=== PATIENT | female | born 1975 | race African-American/Black ===

== ENCOUNTER 2022-03-12 17:35 | Emergency (ER) | payer OTHER, SELFPAY ==
[2022-03-12 17:48] VITALS: BP 147/93; PULSE 74; RESP 16; TEMP 37.2; O2SAT 99
--- NOTE | 2022-03-12 18:08 | ED.URI ---
HPI - URI/Sore Throat General Chief Complaint: Upper Respiratory Infection Stated Complaint: uri Time Seen by Provider: 03/12/22 18:09 Source: patient, family, RN notes reviewed and old records reviewed Mode of arrival: ambulatory Limitations: no limitations History of Present Illness HPI Narrative: 46-year-old female presents to the [facility] with complaints of left ear itching and right buttock pain for at least 2 to 3 months. Has an appointment with her primary care provider on March 20, was not able to get in however needs a work note for today. Denies any fevers. No treatment prior to arrival no numbness or tingling in extremities. Walks with a normal gait. No saddle anesthesia. No loss or retention of bladder or bowel. Related Data Allergies Allergy/AdvReac Type Severity Reaction Status Date / Time ibuprofen Allergy Mild Unknown Verified 03/12/22 18:03 Review of Systems Review of Systems: All systems reviewed & are unremarkable except as noted in HPI and below Constitutional: Constitutional: Reports no additional constitutional complaints, Denies chills, Denies fever(s) and Denies headache(s) Eyes: Eyes: Reports no additional eye complaints ENT: Reports as per HPI (Left ear pain), Denies vertigo, Denies dizziness, Denies headache(s), Denies nasal congestion and Denies sore throat Cardiovascular: Cardiovascular: Reports no additional cardiovascular complaints, Denies chest pain, Denies syncope, Denies rapid heart rate and Denies dyspnea Respiratory: Respiratory: Reports no additional respiratory complaints, Denies cough, Denies dyspnea and Denies wheezing Gastrointestinal: Gastrointestinal: Reports no additional gastrointestinal complaints, Denies abdominal pain, Denies diarrhea, Denies nausea and Denies vomiting Musculoskeletal: Musculoskeletal: Reports as per HPI, Reports back pain (Right buttock over 3 months) and Denies numbness Integumentary/Breasts: Skin/Breast: Reports system reviewed and no additional complaints, except as docu Neurologic: Reports system reviewed and no additional complaints, except as documented, Denies vertigo, Denies dizziness, Denies syncope, Denies headache(s), Denies focal weakness and Denies numbness Psychiatric: Psychiatric: Reports no additional psychiatric complaints Allergic/Immunologic: Allergic/Immunologic: Reports no additional allergic/immunologic complaints and Denies wheezing PMFSH Comments At the time of my signature, I reviewed and agree with the nursing past medical, surgical, social, and family history. There is no relevant family history pertinent to the patient complaint. Exam Const: General: cooperative, healthy appearing, no acute distress, well developed and alert Nutritional Appearance: well nourished Orientation/consciousness: patient oriented x3 Limitations: no limitations HENMT: Head: normal to inspection Ears: external ears normal, TM's normal bilaterally and Abnormal EAC present erythema on the left and edema on the left; no cerumen impaction and no excessive cerumen Throat: posterior oropharynx normal and uvula midline Eyes: Conjunctivae: conjunctivae normal Pupils: Equal, round and reactive pupils present Neck: Neck: normal visual inspection, no lymphadenopathy and no meningeal signs Chest: Chest palpation & inspection: normal inspection of the chest Resp: Effort & Inspection: normal respiratory effort and no use of accessory muscles Auscultation: clear to auscultation bilaterally, no crackles, no rales, no rhonchi and no wheezes Cardio: Rate: regular rate Rhythm: regular rhythm Skin: General skin exam: normal color Rashes: no rashes Wounds: no wounds Neuro: General: patient oriented x3, moves all extremities, no meningeal signs and no focal motor deficits Cranial nerves: Yes Equal, round and reactive pupils present Speech: normal speech Gait exam (Neuro): Normal gait present Extrem: General: normal to inspection, full ROM and capillary refill
== END 2022-03-12 18:20 | disposition home or self-care (01) ==
PROVIDERS: Emergency Provider Nurse Practitioner; PCP Family Medicine
DX: S00.412A Abrasion of left ear, initial encounter (principal); X58.XXXA Exposure to other specified factors, initial encounter; M54.50 Low back pain, unspecified
CPT/HCPCS: 99213; G0463

== ENCOUNTER 2022-04-23 15:12 | Emergency (ER) | payer OTHER, SELFPAY ==
[2022-04-23 15:24] VITALS: BP 124/96; PULSE 82; RESP 16; TEMP 37; O2SAT 99
--- NOTE | 2022-04-23 15:46 | ED.URI ---
HPI - URI/Sore Throat General Chief Complaint: Upper Respiratory Infection Stated Complaint: thorpe/congestion Time Seen by Provider: 04/23/22 15:46 Source: patient and RN notes reviewed Mode of arrival: ambulatory Limitations: no limitations History of Present Illness HPI Narrative: 46-year-old female presents to the [facility] with complaints of clear nasal drainage, congestion and a head presssure on the left side. Patient reports symptoms started this morning. Denies any other symptoms. Denies fevers, chest pain, abdominal pain. No nausea vomiting or diarrhea. No treatment prior to arrival Related Data Home Medications Medication Instructions Recorded Confirmed No Home Medications 04/23/22 04/23/22 Allergies Allergy/AdvReac Type Severity Reaction Status Date / Time ibuprofen Allergy Mild Unknown Verified 03/12/22 18:03 Review of Systems Review of Systems: All systems reviewed & are unremarkable except as noted in HPI and below Constitutional: Constitutional: Reports no additional constitutional complaints, Denies chills and Denies fever(s) Eyes: Eyes: Reports no additional eye complaints ENT: Reports as per HPI and Reports nasal congestion Cardiovascular: Cardiovascular: Reports no additional cardiovascular complaints Respiratory: Respiratory: Reports no additional respiratory complaints Gastrointestinal: Gastrointestinal: Reports no additional gastrointestinal complaints Musculoskeletal: Musculoskeletal: Reports no additional musculoskeletal complaints Integumentary/Breasts: Skin/Breast: Reports system reviewed and no additional complaints, except as docu Neurologic: Reports system reviewed and no additional complaints, except as documented Psychiatric: Psychiatric: Reports no additional psychiatric complaints Allergic/Immunologic: Allergic/Immunologic: Reports no additional allergic/immunologic complaints PMFSH Past Medical History Medical History (Updated 04/25/22 @ 17:27 by Mansi Ontiveros APRN) No significant medical problems Surgical History Surgical History (Updated 04/25/22 @ 17:27 by Mansi Ontiveros APRN) No history of previous surgery Social History Social History (Updated 04/25/22 @ 17:27 by Mansi Ontiveros APRN) Gender identity (if verbalized by the patient): Female Comments At the time of my signature, I reviewed and agree with the nursing past medical, surgical, social, and family history. There is no relevant family history pertinent to the patient complaint. Exam Const: General: healthy appearing, no acute distress and alert Nutritional Appearance: well nourished Orientation/consciousness: patient oriented x3 Limitations: no limitations HENMT: Head: normal to inspection Ears: external ears normal and TM abnormal bulging on the left and with fluid behind the TM on the left; not erythematous General nose exam: Normal external nose present and Nasal discharge present clear bilateral Face and sinus: normal facial exam Throat: posterior oropharynx normal and uvula midline Eyes: General: appearance normal, both eyes and all related structures Pupils: Equal, round and reactive pupils present Neck: Neck: normal visual inspection, no lymphadenopathy and no meningeal signs Chest: Chest palpation & inspection: normal inspection of the chest Resp: Effort & Inspection: normal respiratory effort and no use of accessory muscles Auscultation: clear to auscultation bilaterally, no crackles, no rales, no rhonchi and no wheezes Cardio: Rate: regular rate Rhythm: regular rhythm Back/Spine/Pelvis: Cervical Spine: normal cervical lordosis Thoracic/Lumbar Spine: thoracic and lumbar spine normal to inspection Skin: General skin exam: normal color Rashes: no rashes Wounds: no wounds Neuro: General: patient oriented x3, moves all extremities, no meningeal signs and no focal motor deficits Cranial nerves: Yes Equal, round and reactive pupils present Speech: normal speech Ga
== END 2022-04-23 16:08 | disposition home or self-care (01) ==
PROVIDERS: Emergency Provider Nurse Practitioner; PCP Family Medicine
DX: H69.92 Unspecified Eustachian tube disorder, left ear (principal); R51.9 Headache, unspecified
CPT/HCPCS: 99211; G0463

== ENCOUNTER 2024-08-09 09:35 | Emergency (ER) | payer OTHER, SELFPAY ==
[2024-08-09 09:46] VITALS: BP 151/98; PULSE 81; RESP 16; TEMP 37.7; O2SAT 100
--- NOTE | 2024-08-09 10:01 | ED_ITS ---
HPI - General Adult General Chief complaint: Unspecified Stated complaint: right eye swollen,nose runny Time Seen by Provider: 08/09/24 09:37 Source: patient Mode of arrival: ambulatory Limitations: no limitations History of Present Illness HPI narrative: Patient is a 49-year-old female who presents with nasal congestion and right left-sided face swelling. Patient states she has had congestion for 2 weeks. History of nasal polyps and sinus surgery in 2021. Patient has been using Flonase. Patient states she woke up with her face being swollen. Denies any fever, chills, nausea, vomiting, diarrhea, dental pain. States she went to the dentist a year ago Related Data Home Medications Medication Instructions Recorded Confirmed albuterol 90 mcg/actuation aerosol mcg inhalation 02/28/23 02/28/23 inhaler montelukast 10 mg tablet 10 mg PO DAILY 02/28/23 02/28/23 omeprazole 20 mg capsule,delayed 20 mg PO DAILY 02/28/23 02/28/23 release Allergies Allergy/AdvReac Type Severity Reaction Status Date / Time ibuprofen Allergy Mild Unknown Verified 02/28/23 10:53 Review of Systems Review of Systems: All systems reviewed & are unremarkable except as noted in HPI and below Constitutional: Constitutional: Denies body ache(s), Denies chills, Denies fatigue, Denies fever(s), Denies headache(s), Denies malaise and Denies weakness Eyes: Eyes: Denies blurry vision, Denies itchy eyes and Denies loss of vision ENT: Denies otalgia, Denies headache(s), Reports nasal congestion, Denies sin us pain, Denies sore throat and Reports other (right facial swelling) Cardiovascular: Cardiovascular: Denies chest pain, Denies irregular heart rh ythm and Denies dyspnea Respiratory: Respiratory: Denies cough and Denies dyspnea Gastrointestinal: Gastrointestinal: Denies abdominal pain, Denies diarrhea, Denies nausea and Denies vomiting Musculoskeletal: Musculoskeletal: Denies back pain, Denies myalgias and Denies arthralgias Integumentary/Breasts: Skin/Breast: Denies pruritus and Denies rash Neurologic: Denies headache(s), Denies loss of vision and Denies weakness Psychiatric: Psychiatric: Reports no additional psychiatric complaints Endocrine: Endocrine: Denies fatigue Allergic/Immunologic: Allergic/Immunologic: Denies itchy eyes PMFSH Past Medical History Medical History Abdominal bloating Dysphagia Encounter for screening colonoscopy Nausea and vomiting No significant medical problems Surgical History Surgical History No history of previous surgery Social History Social History Smoking status: Never smoker Gender identity (if verbalized by the patient): Female Comments At time of signature, agree with nursing past medical, surgical, social and family history. There is no relevant family history pertinent to the presenting complaint. Exam Const: General: cooperative, healthy appearing, comfortable, no acute distress and well nourished Nutritional Appearance: well nourished O rientation/consciousness: patient oriented x3 Limitations: no limitations HENMT: Head: normal to inspection, normocephalic and atraumatic Ears: hearing grossly normal bilaterally, external ears normal, TM's normal bilaterally, EAC's normal and no periauricular adenopathy Face/Nose/Sinus: Normal external nose present, Abnormal mucous membranes and turbinates present erythematous bilateral and diffuse, no nasal polyps, normal facial exam, sinuses nontender and face symmetric Face and sinus: normal facial exam, sinuses nont melisa and face symmetric Face images: 1. mild swelling noted. no tenderness on palpation Mouth: Yes Normal oral and palatal mucosa present, Yes lip normal, Yes tongue normal, Yes Normal salivary glands and ducts present, Yes oropharynx normal and Yes moist mucous membranes Teeth and gingiva: dentition normal Throat: posterior oropharynx normal, tonsils normal and uvula midline Eyes: General: appearance normal, both eyes and all related structures Alignment and Position: alignment normal and position normal Periorbital: periorbital findings normal Eyelids: eyelids normal Pupils: Equal, round and reactive pupils present Neck: Neck: normal visual inspection, full ROM, no lymphadenopathy and supple Chest: Chest palpation & inspection: normal inspection of the chest and normal palpation of entire chest wall Resp: Effort & Inspection: normal respiratory effort and able to speak in complete sentences Auscultation: clear to auscultation bilaterally, no crackles, no rales, no rhonchi and no wheezes Cardio: Rate: regular rate Rhythm: regular rhythm Heart sounds: S1 normal heart sound present and S2 normal heart sound present GI: Inspection: normal to inspection Skin: General skin exam: normal color and no rashes or lesions noted Neuro: General: patient oriented x3 and moves all extremities Cranial nerves: Yes Equal, round and reactive pupils present Speech: normal speech Gait exam (Neuro): Normal gait present Extrem: General: normal to inspection, full ROM and no edema Psych: Appearance: grossly normal and well kempt Mental Status: mental status grossly normal Speech and movement: Normal speech and movement present Affect: normal affect Attitude: cooperative Thought process: Normal thought process present Course Course Emergency Course: Patient is aware of diagnosis, understands and agrees to treatment plan. Anticipatory guidance given. Patient agrees to follow-up as directed and is aware of reasons to seek care at the emergency department. Portions of this record may have been created with voice recognition software Level of Care: Express Care Visit Vital Signs Vital signs: Vital Signs Temperature 37.7 C H 08/09/24 09:46 Pulse Rate 81 08/09/24 09:46 Respiratory Rate 16 08/09/24 09:46 Blood Pressure 151/98 H 08/09/24 09:46 Pulse Oximetry 100 08/09/24 09:46 Oxygen Delivery Room Air 08/09/24 09:46 Temperature 37.7 C H 08/09/24 09:46 Pulse Rate 81 08/09/24 09:46 Respiratory Rate 16 08/09/24 09:46 Blood Pressure 151/98 H 08/09/24 09:46 Pulse Oximetry 100 08/09/24 09:46 Oxygen Delivery Room Air 08/09/24 09:46 Reviewed Medical Decision Making MDM Narrative Medical decision making narrative: Discharge instructions reviewed with patient, as well as provided in writing per nursing staff. The instructions also include specific and strict return/GO TO THE ER as well as f/u information. All questions have been answered, and the patient deny any further questions with discharge and discharge plan. Differential diagnosis considered: Rdoriguez virus, strep pharyngitis, allergic rhinitis, upper respiratory tract infection, sinusitis, rhinosinusitis, nasopharyngitis. viral pharyngitis, otitis media, otitis externa, otitis effusion, foreign body, cerumen impaction, viral syndrome, and influenza.? Exam findings show no acute concerns or changes; patient is non-toxic appearing and is in no distress.? Patient is appropriate for outpatient treatment and follow- up.? Medical Records Medical records reviewed: Yes I reviewed the external patient's medical records. Vital Signs Vital Signs: Vital Signs Temperature 37.7 C H 08/09/24 09:46 Pulse Rate 81 08/09/24 09:46 Respiratory Rate 16 08/09/24 09:46 Blood Pressure 151/98 H 08/09/24 09:46 Pulse Oximetry 100 08/09/24 09:46 Oxygen Delivery Room Air 08/09/24 09:46 Temperature 37.7 C H 08/09/24 09:46 Pulse Rate 81 08/09/24 09:46 Respiratory Rate 16 08/09/24 09:46 Blood Pressure 151/98 H 08/09/24 09:46 Pulse Oximetry 100 08/09/24 09:46 Oxygen Delivery Room Air 08/09/24 09:46 Discharge Plan Discharge Clinical Impression: Acute bacterial sinusitis Patient Disposition: Home, Self-Care Condition: Stable Instructions: Sinusitis (ED) Additional Instructions: Take antibiotics as prescribed. Take steroids per package instructions Symptomatic treatment of a sinus infection aims to relieve symptoms. These treatments do not shorten the duration of illness. Nonprescription pain medications, such as acetaminophen (eg, Tylenol) or ibuprofen (eg, Motrin, Advil), are recommended for pain. Flushing the nose and sinuses with a saline solution several times per day has been proven to decrease pain associated with congestion and shorten the duration of symptoms. Nasal steroids (such as Flonase, 2 sprays in each nostril daily) can help to reduce swelling inside the nose, usually within two to three days. These drugs have few side effects and relieve symptoms in most people. Oral decongestants (pseudoephedrine and phenylephrine) may be helpful if you have associated symptoms of ear pain or fullness. Nasal decongestant sprays, including oxymetazoline (Afrin) and phenylephrine (Codey-Synephrine), can be used to temporarily treat congestion. However, these sprays should not be used for more than two to three days due to the risk of rebound congestion (when the nose becomes congested constantly unless the medication is used repeatedly), possible addiction, and long-term consequences of frequent use, including persistent nasal dryness and crusting, which is very difficult to treat once it has developed. Medications to thin secretions (such as guaifenesin) may help to clear mucus. Please follow-up with your primary care doctor in the next 1-2 days. If you cannot follow-up with your primary care doctor please go to the ED for any urgent issues. If you have any worsening of symptoms or any other concerns ple ase go to the ED immediately. Your blood pressure was elevated above 120/80 today at Urgent Care. This puts you above the threshold for follow up visit with a primary care provider. High blood pressure does not usually cause any symptoms, however it may lead to kidney failure, stroke, heart disease just to name a few if untreated . Many people are anxious when seeing a provider or nurse. As a result, you are not diagnosed with hypertension at this time unless your blood pressure is persistently high at two office visits at least one week apart. Some things that can help lower blood pressure are lifestyle modifications, such as light exercise, decreased salt in diet, and weight loss. It is important to follow up with a PCP about this within 1 week. Prescriptions: New fluticasone propionate [Flonase Allergy Relief] 50 mcg/actuation spray,suspension 1 spray intranasal DAILY Qty: 16 0RF Rx Instructions: administer into each nostril amoxicillin-pot clavulanate 875-125 mg tablet 1 tablet PO Q12H 10 Days Qty: 20 0RF methylprednisolone [Medrol (Crow)] 4 mg tablets,dose pack See Rx Instructions .ROUTE .COMPLEX Qty: 21 0RF Rx Instructions: orally per package directions No Action albuterol 90 mcg/actuation aerosol inhalation montelukast 10 mg tablet 10 mg PO DAILY omeprazole 20 mg capsule,delayed release(DR/EC) 20 mg PO DAILY Follow-up/Referrals: Yeni,Loren Solano MD [Primary Care Provider] - 3 Days Stand Alone Forms: Work/School Release IP Time of Disposition: 10:35
== END 2024-08-09 10:40 | disposition home or self-care (01) ==
PROVIDERS: Emergency Provider Nurse Practitioner Family; PCP Family Medicine
DX: J01.90 Acute sinusitis, unspecified (principal)
CPT/HCPCS: 99213; G0463

== ENCOUNTER 2024-12-28 13:45 | Emergency (ER) | payer MEDICAID, SELFPAY ==
--- NOTE | 2024-12-28 13:56 | ED.URI ---
HPI - URI/Sore Throat General Chief Complaint: Upper Respiratory Infection Stated Complaint: right eye dry,nasal congestion,no sense of smell Time Seen by Provider: 12/28/24 14:10 Source: patient and RN notes reviewed Mode of arrival: ambulatory Limitations: no limitations History of Present Illness HPI Narrative: 49-year-old female presents with concern for sinus congestion, thick discolored sinus drainage from item 1 week. She reports history of problems with her sinuses. In a separate complaint she reports right eye irritation. Reports of falling she got a foreign body in eye yesterday. MD elicited complaint: nasal congestion Related Data Home Medications ?Medication ?Instructions ?Recorded ?Confirmed ?Last Taken ?Type budesonide-formoterol HFA 160 2 puff inhalation Q12H 12/28/24 12/28/24 Unknown History mcg-4.5 mcg/actuation aerosol inhaler dapagliflozin propanediol 5 mg 5 mg PO DAILY 12/28/24 12/28/24 Unknown History tablet (Farxiga) Allergies Allergy/AdvReac Type Severity Reaction Status Date / Time ibuprofen Allergy Intermediate Wheezing Verified 12/28/24 14:15 Review of Systems Review of Systems: CONSTITUTIONAL: Denies malaise, chills, sweats, or fever. EYES: Denies visual changes, redness, or discharge. Reports right eye irritation ENT: Reports rhinorrhea, congestion, sinus pain CARDIOVASCULAR: Denies chest pain, palpitations, or edema. RESPIRATORY: Reports cough. Denies dyspnea. GASTROINTESTINAL: Denies abdominal pain, nausea, vomiting, diarrhea SKIN: Denies rash or itching. MUSCULOSKELETAL: Denies myalgia. NEUROLOGIC: Denies headache. All systems reviewed & are unremarkable except as noted in HPI and below PMFSH Past Medical History Medical History Abdominal bloating Dysphagia Encounter for screening colonoscopy Nausea and vomiting No significant medical problems Surgical History Surgical History No history of previous surgery Social History Social History Smoking status: Never smoker Gender identity (if verbalized by the patient): Female Comments At time of signature, agree with nursing past medical, surgical, social and family history. There is no relevant family history pertinent to the presenting complaint Exam Narrative: GENERAL: Well-appearing, well-nourished, and in no acute distress. HEAD: Normocephalic EYES: PERRLA, conjunctivae clear. Corneal abrasion visualized in the right eye ENT: Nares clear, turbinates edematous and erythematous. Mucous membranes moist. TM pearly venegas with dull light reflex bilaterally; no tragal tenderness. Oropharynx not erythematous without lesions. Tonsils not enlarged and without exudate, no drooling, no hoarseness, no trismus, uvula midline. NECK: Supple. No lymphadenopathy CHEST: Clear to auscultation, breath sounds equal. No wheezing, rhonchi, rales, or stridor. No respiratory distress, speaks in full sentences. HEART: Regular rate and rhythm. No murmur heard. SKIN: Warm, dry, no rash. NEURO: Alert and oriented x3. PSYCH: Normal mood and affect Course Course Emergency Course: Patient is aware of diagnosis, understands and agrees to treatment plan. Anticipatory guidance given. Patient agrees to follow-up as directed and is aware of reasons to seek care at the emergency department. Portions of this record may have been created with voice recognition software Level of Care: Express Care Visit Vital Signs Vital signs: Reviewed. MDM - URI/Sore Throat MDM Narrative Medical decision making narrative: Differential diagnosis considered: Rodriguez virus, strep pharyngitis, allergic rhinitis, upper respiratory tract infection, sinusitis, rhinosinusitis, nasopharyngitis. viral pharyngitis, otitis media, otitis externa, pneumonia, bronchitis, viral cough syndrome, viral syndrome, and influenza. Exam findings show no acute concerns or changes; patient is non-toxic appearing and is in no distress. Patient is appropriate for outpatient treatment and follow-up. Lab Data Attestation: I reviewed the patient's lab results. Critical Care Time Critical Care Time Critical Care Time: No Discharge Plan Discharge Clinical Impression: Sinusitis, Corneal abrasion Patient Disposition: Home, Self-Care Condition: Stable Instructions: Antibiotic Form, Sinusitis (ED), How to Use Eye Drops (ED) Additional Instructions: Take medications as prescribed Nonprescription pain medications, such as acetaminophen (eg, Tylenol) or ibuprofen (eg, Motrin, Advil), are recommended for pain. Flushing the nose and sinuses with a saline solution several times per day has been proven to decrease pain associated with congestion and shorten the duration of symptoms. Nasal steroids (such as Flonase, 2 sprays in each nostril daily) can help to reduce swelling inside the nose, usually within two to three days. These drugs have few side effects and relieve symptoms in most people. Oral decongestants (pseudoephedrine and phenylephrine) may be helpful if you have associated symptoms of ear pain or fullness. Nasal decongestant sprays, including oxymetazoline (Afrin) and phenylephrine (Codey-Synephrine), can be used to temporarily treat congestion. However, these sprays should not be used for more than two to three days due to the risk of rebound congestion (when the nose becomes congested constantly unless the medication is used repeatedly), possible addiction, and long-term consequences of frequent use, including persistent nasal dryness and crusting, which is very difficult to treat once it has developed. Medications to thin secretions (such as guaifenesin) may help to clear mucus. Please follow-up with your primary care doctor in the next 1-2 days. If you cannot follow-up with your primary care doctor please go to the ED for any urgent issues. If you have any worsening of symptoms or any other concerns please go to the ED immediately. Eye: Corneal abrasions will heal in 1-2 days. Keep your eye shut and wear sunglasses or stay in low light to avoid light sensitivity. Do not touch or rub your eye or use a fabric patch You may take Tylenol or ibuprofen for pain Follow-up with PCP or plastic machine operator if condition is not improving in 2-3days. Patient Language: Cuban Prescriptions: New pseudoephedrine HCl [12 Hour Decongestant] 120 mg tablet extended release 120 mg PO Q12H PRN (Reason: nasal congestion) Qty: 20 0RF polymyxin B sulf-trimethoprim 10,000 unit- 1 mg/mL drops 1 drp RIGHT EYE Q3H 7 Days Qty: 10 0RF Rx Instructions: while awake; do not exceed 6 doses in 24 hours amoxicillin-pot clavulanate 875-125 mg tablet 1 tablet PO Q12H 10 Days Qty: 20 0RF No Action budesonide-formoterol 160-4.5 mcg/actuation HFA aerosol inhaler 2 puff INHALATION Q12H dapagliflozin propanediol [Farxiga] 5 mg tablet 5 mg PO DAILY Follow-up/Referrals: Jose,Summer Rosas NP [Primary Care Provider] - Time of Disposition: 14:20
[2024-12-28 14:00] VITALS: BP 136/92; PULSE 81; RESP 16; TEMP 36.6; O2SAT 100
== END 2024-12-28 14:28 | disposition home or self-care (01) ==
PROVIDERS: Emergency Provider Nurse Practitioner; PCP Nurse Practitioner Family
DX: J32.9 Chronic sinusitis, unspecified (principal); S05.01XA Injury of conjunctiva and corneal abrasion without foreign body, right eye, initial encounter; W19.XXXA Unspecified fall, initial encounter
CPT/HCPCS: 99213; G0463

== ENCOUNTER 2025-01-12 15:21 | Outpatient (CLI) | payer MEDICAID, SELFPAY ==
--- NOTE | ~2025-01-12 | CT_ITS ---
EXAMINATION: CT sinus wo con DATE: 01/12/2025 15:50 INDICATION: Chronic sinusitis TECHNIQUE: Computed tomography (CT) of the paranasal sinuses was performed without intravenous contra st. Coronal reconstructions were obtained. The dose-length product was 297.72 mGy-cm. COMPARISON: None FINDINGS: Dense opacification of the bilateral frontal sinuses, ethmoid sinuses and sphenoid sinuses. Mucoperiosteal thickening of the bilateral maxillary sinuses are also identified, with near-complete opacification. No significant septal deviation is appreciated. No nasal spur is noted. IMPRESSION: Severe bilateral sinus opacification, as detailed above. Reviewed, dictated and finalized at location A.
--- OUTSIDE RECORDS SUMMARY | 2025-01-12 16:32 | XMS_ITS | Clinical Summary ---
Author Organization [facility] Care Team Providers Care Surgical Resident Name Role Phone Unavailable Primary Care Provider Unavailabl e Social History Tobacco Use Types Packs/Day Years Used Date Smoking Tobacco: Never Assessed Comments Unknown Sex and Gender Information Value Date Recorded Sex Assigned at Not on file Legal Sex Female 9:33 AM CDT Gender Identity Not on file Sexual Orientation Not on file Plan of Treatment Health Maintenance Due Date Last Done Comments Hepatitis C Virus (HCV) Screening 1977 TdaP Immunization 1977 Hepatitis B Immunization (1 of 3 - 19+ 3-dose series) 1996 Pap Smear 1998 Cervical Cancer Screening (CCS) 2007 HPV/Cotest 2007 Discussion re Starting/Frequ ency of Mammograms 2017 Colonoscopy 2022 Colorectal Cancer Screening 2022 Influenza Immunization (#1) 2024 SARS-COV-2 Immunization ( season) 2024 Respiratory Syncytial Virus (RSV) Immunization (Adult) (1 - 1-dose 75+ series) 2052 Meningococcal Immunization (ACWY) Aged Out No longer eligible based on patient's age to complete this topic Pneumococcal Immunization Combined Aged Out No longer eligible based on patient's age to complete this topic Rotavirus Immunization Aged Out No lo nger eligible based on patient's age to complete this topic
--- OUTSIDE RECORDS SUMMARY | 2025-01-12 16:32 | XMS_ITS | Clinical Summary ---
Author Organization [facility] Address [address] [place] [address] Care Team Providers Care Bartender Server Name Role Phone Unavailable Primary Care Provider Unavailabl e Source Comments [facility],non-owned Affiliates and Associated Physician Practices is amultiple site organization consisting of ambulatory clinics and hospital sitesin [place], [place], [place] and [place]. This disclosure is being madepursuant to the Care Everywhere program and may not contain all information available regarding this patient. Last updated 18.[facility] Allergies Active Allergy Reactions Criticality Noted Date Comments Ibuprofen Shortness of Breath High 05/06/2021 To ED and meds given but no ET needed Medications * Be aware that medications may not be up to date on this document. Alwaysverify current medications with the patient. Medication Sig Dispensed Refills Start Date End Date Status budesonide-formoter ol (Symbicort) 160-4.5 MCG/ACT inhaler Inhale 2 (two) puffs by mouth 2 times daily Active oxyCODONE, immediate release, (Roxicodone) 5 MG tablet Take 1 (one) tablet by mouth every 6 hours as needed for Pain 8 tablet 07/22/2022 Active Additional Information Patient not taking.Reported on 11/26/2022 predniSONE (Deltasone) 10 MG tablet 40mg po qam x 3days, 30mg po qam x 3days, 20mg po qam x 3days, 10mg po qam x 3days 30 tablet 07/30/2022 Active Additional Information Patient not taking.Reported on 11/26/2022 oxyCODONE-acetamino phen (Percocet) 5-325 MG tablet Take 1 (one) tablet by mouth every 6 hours as needed for Pain 16 tablet 07/30/2022 Active Additional Information Patient not taking.Reported on 11/26/2022 albuterol HFA (Proventil; Ventolin; Proair) 108 (90 Base) MCG/ACT inhaler Inhale 2 (two) puffs by mouth as needed Active Fluticasone Propionate (Xhance) 93 MCG/ACT EXHU [place] 2 sprays into the nose once daily 16 mL 5 06/19/2023 Active budesonide (Pulmicort) 0.5 MG/2ML nebulizer suspensionIndicatio ns:Hypertrophy of inferior nasal turbinate,Nasal polyposis .ambu 360 mL 1 05/05/2024 Active Active Problems No known active problems Social History Tobacco Use Types Packs/Day Years Used Date Smoking Tobacco: Never Smokeless Tobacco: Never Tobacco Cessation:Counseling Given: Not Answered Alcohol Use Standard Drinks/Week Comments Yes 0 (1 standard drink = 0.6 oz pur e alcohol) Occasionally Sex and Gender Information Value Date Recorded Sex Assigned at Not on file Gender Identity Not on file Sexual Orientation Not on file Last Filed Vital Signs Vital Sign Reading Time Taken Comments Blood Pressure 141/97 11/26/2022 11:40 AM FISHING BOAT CAPTAIN Pulse 65 11/26/2022 11:40 AM FISHING BOAT CAPTAIN Temperature 37.3 C (99.1 F) 07/22/2022 11:45 AM CDT Respiratory Rate 17 07/22/2022 12:45 PM CDT Oxygen Saturation 98% 07/22/2022 12:45 PM CDT Inhaled Oxygen Concentration - - Weight 87.5 kg (193 lb) 11/26/2022 11:40 AM FISHING BOAT CAPTAIN Height 162.6 cm (5' 4 ) 11/26/2022 11:40 AM FISHING BOAT CAPTAIN Body Mass Index 33.13 11/26/2022 11:40 AM FISHING BOAT CAPTAIN Plan of Treatment Health Maintenance Due Date Last Done Comments COLOGUARD (AGES 45-75) - COL ON CA SCREENING 1977 COLON MONITORING 1977 COLONOSCOPY - COLON CA SCREENING 1977 CT COLONOGRAPHY - COLON CA SCREENING 1977 Colorectal Cancer Screening 1977 FIT - COLON CA SCREENING 1977 FLEX SIG - COLON CA SCREENING 1977 LIPID TESTING 1977 MAMMOGRAM 1977 PAP SMEAR 1977 HIV SCREENING 1992 HEPATITIS C SCREENING 07/16/1995 DTAP/TDAP/TD VACCINES (1 - Tdap) 1996 HEPATITIS B VACCINE (1 of 3 - 19+ 3-dose series) 1996 SCREENING FOR DIABETES 06/04/2022 COVID-19 VACCINE (1 - 2023-2 5 season) 2024 INFLUENZA VACCINE (#1) 2024 DEPRESSION SCREENING 10/13/2024 ZOSTER VACCINE (1 of 2) 2027 HIB VACCINE Aged Out No longer eligi ble based on patient's age to complete this topic HPV VACCINE Aged Out No longer eligi ble based on patient's age to complete this topic MENINGOCOCCAL (Group B) VACC INE SHARED DECISION-MAKING Aged Out No longer eligibl e based on patient's age to complete this topic MENINGOCOCCAL GROUPS A/C/Y/W VACCINE Aged Out No longer eligible b ased on patient's age to complete this topic PNEUMOCOCCAL VACCINE Aged Out No long er eligible based on patient's age to complete this topic
--- OUTSIDE RECORDS SUMMARY | 2025-01-12 16:33 | XMS_ITS | Data Portability ---
Author Organization [facility] Address [address] [place] [address] Care Team Providers Care Flat Grinder Operator Name Role Phone LEXIE GALVEZ Black Top Spreader Machine Operator Unavailable Assessment Encounter Date Assessment Date Assessment LastModified by Organization Details LastModified Time 07/03/2016 07/03/2016 40yo : 1. Health maintenance: - pap collected; guidelines reviewed - STD testing declined - clinical breast exam wnl; encouraged breast self awareness; guidelines reviewed 2. RTC 1 year or sooner prn deepthi Not available 07/03/2016 15:02:18 Plan of Treatment Reminders Order Date Submit Date Provider Last Modified By Organization Details Last Modified Time Details Appointments None recorded. Lab unlisted lab - Pap Ig,HPV and rfx HPV 16/18 [email or web address] [facility], [address] [place] [address], [id number], 6 15:07:29 Referral None recorded. Procedures None recorded. Surgeries None recorded. Imaging None recorded. Medication Orders None recorded. Patient TargetsNo targets recorded. Patient InstructionsNo instructions recorded. Reason for Referral None Reported. Problems Name Problem SNOMED Code Status Onset Date Resolution Date Notes Provider Name and Address Organization Details Recorded Time Urinary tract infectious disease 03689591 Completed 07/03/2016 Lexie Galvez MD Attn: Herson lombardi,[address] [facility], [place], [address], [facility] 6 14:59:47 Asthma 938045202 Active Lexie Galvez MD Attn: [address]erson [email or web address] [facility], [place], [address], [facility] 6 14:59:47 Problem Notes None recorded. Procedures Surgical History Date Name Laterality Status Provider Name and Address Organization Details Recorded Time 6 Date of Last Pap Smear completed Lexie Galvez MD Attn: [employer],[address] [place], [address], [facility] 07/03/2016 14:59:48 Caesarean Section completed Lexie Galvez MD Attn: [employer],[address] [facility], [place], [address], [facility] 07/03/2016 14:59:48 Imaging Results None recorded. Procedure Notes None recorded. Medical Equipment None Reported. Allergies Allergen ID Allergen Name Allergen Category Reaction Reaction Severity Criticality Documentation Date Start Date Code Code System Note Provider Name and Address Organization Details Recorded Time 16837 Motrin medicatio n wheezing moderate Not available 07/03/2016 92655 8 RxNorm Not Available Not Available Not Available 08084 Advil medicatio n wheezing moderate Not available 07/03/2016 77822 0 RxNorm Not Available Not Available Not Available 82570 ibuprofen medicatio n wheezing moderate Not available 07/03/2016 5640 RxNorm Not Available Not Available Not Available Medications Name Sig Start Date Stop Date Status Note LastModified by Organization Details LastModified Time cefuroxime axetil 250 mg tablet active Not Available Not Available Not Available prednisone 20 mg tablet active Not Available Not Available Not Available Tamiflu 75 mg capsule active Not Available Not Available Not Available fluticasone propionate 50 mcg/actuation nasal spray,suspension active Not Available Not Avail able Not Available nitrofurantoin monohydrate/macr ocrystals 100 mg capsule active Not Available Not Available Not Available Vitals Date Recorded Body weight Body mass index (BMI) Body height Systolic blood pressure Diastolic blood pressure Provider Name and Address Organization Details Last Updated DateTime 07/03/2016 12902.07 238 g 29.9 kg/m2 162.56 cm 120 mm[Hg] 76 mm[Hg] Sharla Horowitz MA [facility] 6 14:30:53 Social History None recorded. Functional Status None recorded. Mental Status None recorded. Family History Relationship Description Onset Age of this Age Resolved Age Notes LastModified by Organization Details LastModified Time Mother Hypertensive disorder [email or web address] Not available 06/14 14:59:48 Medical History Condition Response Other Y Asthma Y Gynecological History Statement/Question Response Abnormal Pap N Flow Moderate On BCP's at Conception? N STIs/STDs N HPV Vaccine N Duration of Flow (days) 7 Age at Menarche 14 Current Control Method Condoms Age at First Child 19 Frequency of Cycle (Q days) 30 Sexually Active? Y Menses Monthly Y Date of Last Pap Smear 07/03/2016 Sexual Problems? N LMP Approximate Desired Control Method N/A Obstetrics History GPAL:G 3 P 2 0 1 2 Type Value Full Term 2 Induced 1 Living 2 Total 3 Past Encounters Encounter ID Performer Location Encounter Start Date Encounter Closed Date Diagnosis/Indication Diagnosis SNOMED-CT Code Diagnosis ICD10 Code Diagnosis Note [id number] Lexie Galvez MD [facility] (REGIONAL PSYCHIATRIC DIRECTOR) [address] [place] [address] 07/03/2016 14:08:36 07/03/2016 16:36:59 Gynecologic examination 09996170 Z01.419 Health Concerns Section Related Observation LastModified by Organization Detai ls LastModified Time None Recorded Concern Status LastModified by Organization Details LastModified Time None Recorded Advance Directives Directive None Recorded Payers Encounter Date Sequence Insurance Name Policy Number Policy [place] Covered Member ID [place] Member ID Guarantor Name 07/03/2016 1 [place] [id number] Chandni Ward [id number] Notes Date Note Type Note Provider Name and Address Organization Details Recorded Time 07/03/2016 text/html 40yo here for annual exam. Hasn't had one in many years. Her insurance told her she needed a pap smear. She is sexually active, but declines STD testing. No history of abnormal pap that she remembers. Still having regular monthly menses. Not using anything other than condoms for control. She does check her breasts at home. Lexie Galvez MD Attn: [employer],[address] [place], [address], [place] [facility] 07/03/2016 15:02:27 OBGyn Episode No OBEpisode recorded.
--- OUTSIDE RECORDS SUMMARY | 2025-01-12 16:33 | XMS_ITS | Clinical Summary ---
Author Organization [facility] Address [address] [place] [id number] Care Team Providers Care Tobacco Farmworker Name Role Phone Loren Jaime MD Primary Care Provider [phone] Allergies Active Allergy Reactions Criticality Noted Date Comments Ibuprofen Shortness of Breath High 05/06/2021 To ED and meds given but no ET needed Medications albuterol sulfate HFA 108 (90 Base) MCG/ACT inhaler Inhale 2 puffs into the lungs every 4 (four) hours as needed. Active insulin glargine (LANTUS) 100 UNIT/ML injection (VIAL) Inject 25 Units into the skin nightly at bedtime. 7.5 mL 1 3 Active Additional Information Patient not taking.Reported on 10/26/2024 insulin lispro (HUMALOG) 100 UNIT/ML injection (VIAL) Inject 12 Units into the skin 3 (three) times daily with meals. 11 mL 2 3 Active Additional Information Patient not taking.Reported on 10/26/2024 budesonide-form oterol (SYMBICORT) 160-4.5 MCG/ACT inhaler Inhale 2 puffs into the lungs 2 (two) times daily. Active FARXIGA 5 MG Tab Take 1 tablet by mouth daily. Active oxyCODONE-aceta minophen (PERCOCET) 5-325 MG tabletIndicatio ns:Acute Pain < 7 Day Supply Take 1 tablet by mouth every 4 (four) hours as needed. Indications: Acute Pain < 7 Day Supply 15 tablet 5 Active Active Problems Problem Noted Date Diagnosed Date Cholecystitis 10/25/2024 DKA (diabetic ketoacidosis) ([facility]) Encounters Date Type Department Care Team Description 10/26/2024 1:17 PM PORTABLE TRACK CREW CHIEF Anesthesia Event [place] [address] Vinita Dewey MD Hart, Jamie L, CRNA 10/26/2024 1:00 PM [employer]ABLE TRACK CREW CHIEF - 10/26/2024 2:48 PM PORTABLE [employer] CREW CHIEF Surgery [place] [address] Logan Aquino MD ROBOTIC ASSISTED LAPAROSCOPIC CHOLECYSTECTOMY WITH INDOCYANINE GREEN 10/25/2024 6:26 PM PORTABLE TRACK CREW CHIEF - 10/28/2024 3:00 PM PORTABLE TRACK CREW CHIEF Hospital Encounter [facility] [place] [address] Tracy Victoria PA Elayyan, Ibrahim B, MD Goldberg, Deborah, MD Abdominal Pain Discharge Disposition: Home or Self Care (Routine Discharge) 10/25/2024 Travel from Last 3 Months Social History Tobacco Use Types Packs/Day Years Used Date Smoking Tobacco: Never Smokeless Tobacco: Never Alcohol Use Standard Drinks/Week Comments Not Currently 0 (1 standard drink = 0.6 oz pur e alcohol) [facility] Utilities Answer Date Recorded In the past 12 months has [facility] [employer], gas, oil, or water [employer] threatened to shut off services in your home? No 10/26/2024 Humiliation, Afraid, Rape, and Kick questionnair e Answer Date Recorded Within the last year, have y ou been afraid of your partner or ex-partner? No 10/26/2024 Within the last year, have y ou been humiliated or emotionally abused in other ways by your partner or ex-partner? No Within the last year, have y ou been kicked, hit, slapped, or otherwise physically hurt by your partner or ex-partner? No 10/26/2024 Within the last year, have y ou been raped or forced to have any kind of sexual activity by your partner or ex-partner? No 10/26/2024 Overall Financial Resource Strain (CARDIA) Answe r Date Recorded How hard is it for you to pa y for the very basics like food, housing, medical care, and heating? Not hard at all 10/26/2024 Hunger Vital Sign Answer Date Recorded Within the past 12 months, y ou worried that your food would run out before you got the money to buy more. Never true 10/26/19 25 Within the past 12 months, t he food you bought just didn't last and you didn't have money to get more. Never true 10/26/2024 PRAPARE - Transportation Answer Date Re corded In the past 12 months, has l ack of transportation kept you from medical appointments or from getting medications? No 10/13 In the past 12 months, has l ack of transportation kept you from meetings, work, or from getting things needed for daily living? No 10/26/2024 Housing Stability Vital Sign Answer Linus e Recorded In the last 12 months, was t here a time when you were not able to pay the mortgage or rent on time? No 05/21/2023 In the last 12 months, how many places have you lived? 1 05/21/2023 In the last 12 months, was t here a time when you did not have a steady place to sleep or slept in a chcf (including now)? No 05/21/2023 Housing Stability Vital Sign Answer Linus e Recorded In the last 12 months, was t here a time when you were not able to pay the mortgage or rent on time? No 10/26/2024 In the past 12 months, how m any times have you moved where you were living? 0 10/26/2024 At any time in the past [address] [facility], were you homeless or living in a chcf (including now)? No 10/26/2024 Comments No Sex and Gender Information Value Date Recorded Sex Assigned at Female 10/27/2024 10:09 AM PORTABLE TRACK CREW CHIEF Legal Sex Female 3:27 PM CDT Gender Identity Not on file Sexual Orientation Not on file Last Filed Vital Signs Vital Sign Reading Time Taken Comments Blood Pressure 104/66 10/28/2024 11:12 AM PORTABLE TRACK CREW CHIEF Pulse 80 10/27/2024 3:10 PM [employer]ABLE [employer] CREW CHIEF Temperature 37.1 C (98.8 F) 10/28/2024 11:12 AM PORTABLE TRACK CREW CHIEF Respiratory Rate 19 10/28/2024 7:50 AM PORTABLE TRACK CREW CHIEF Oxygen Saturation 98% 10/28/2024 7:50 AM PORTABLE TRACK CREW CHIEF Inhaled Oxygen Concentration - - Weight 84.9 kg (187 lb 2.7 oz) 10/28/2024 4:45 A M PORTABLE TRACK CREW CHIEF Height 162.6 cm (5' 4 ) 10/25/2024 6:16 PM PORTABLE TRACK CREW CHIEF Body Mass Index 32.13 10/25/2024 6:16 PM PORTABLE TRACK CREW CHIEF Plan of Treatment Health Maintenance Due Date Last Done Comments Cervical Cancer Screening Pa p Smear (Age 30 to 64) Every 3 Years 1977 Colorectal Cancer Screening Colonoscopy (10 Years) 1977 Kidney Health Evaluation 1977 Annual Physical 1980 Pneumococcal Vaccine: Pediatrics (0 to 5 Years) and At-Risk Patients (6 to 64 Years) (1 of 2 - PCV) 1983 Diabetes: Retinopathy Eye Exam 1995 Hepatitis C 1995 DTaP, Tdap and Td Vaccines ( 1 - Tdap) 1996 Hepatitis B Vaccines (1 of 3 - 19+ 3-dose series) 1996 Cervical Cancer Screening Pa p with HPV Testing (Age 30 to 64) Every 5 Years 2007 Cervical Cancer Screening [facility] HPV 2007 Mammogram Screening 2017 Lipid Panel 05/22/2024 05/22/2023 COVID-19 Vaccine (3 - 2023-2 5 season) 2024 06/20/2021, 05/30/2021 Hemoglobin A1C 04/25/2025 10/26/2024, 05/21/2023 Meningococcal B Vaccine Aged Out No l onger eligible based on patient's age to complete this topic Meningococcal Vaccine Aged Out No juan david can eligible based on patient's age to complete this topic RSV Immunizations Under 20 Months Aged Out No longer eligible b ased on patient's age to complete this topic Goals Goal Patient Goal Type Associated Problems Recent Progress Patient-Stated? 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 Procedure Name Priority Date/Time Associated Diagnosis Comments POCT GLUCOSE - OSUNA DOCKED DEVICE Routine 10/28/2024 11:12 AM PORTABLE TRACK CREW CHIEF POCT GLUCOSE - OSUNA DOCKED DEVICE Routine 10/28/2024 6:12 AM PORTABLE TRACK CREW CHIEF COMPREHENSIVE METABOLIC PANEL Routine 10/28/2024 4:45 AM PORTABLE TRACK CREW CHIEF CBC W/DIFF AUTOMATED Routine 10/28/2024 4:45 AM PORTABLE TRACK CREW CHIEF POCT GLUCOSE - OSUNA DOCKED DEVICE Routine 10/27/2024 8:02 PM PORTABLE TRACK CREW CHIEF POCT GLUCOSE - OSUNA DOCKED DEVICE Routine 10/27/2024 3:57 PM PORTABLE TRACK CREW CHIEF POCT GLUCOSE - OSUNA DOCKED DEVICE Routine 10/27/2024 11:47 AM PORTABLE TRACK CREW CHIEF COMPREHENSIVE METABOLIC PANEL Routine 10/27/2024 4:05 AM PORTABLE TRACK CREW CHIEF CBC W/DIFF AUTOMATED Routine 10/27/2024 4:05 AM PORTABLE TRACK CREW CHIEF POCT GLUCOSE - OSUNA DOCKED DEVICE Routine 10/26/2024 8:06 PM PORTABLE TRACK CREW CHIEF POCT GLUCOSE - OSUNA DOCKED DEVICE Routine 10/26/2024 5:10 PM PORTABLE TRACK CREW CHIEF POCT GLUCOSE - OSUNA DOCKED DEVICE Routine 10/26/2024 3:00 PM PORTABLE TRACK CREW CHIEF ROBOTIC XI CHOLECYSTECTOMY 10/26/2024 1:16 PM PORTABLE TRACK CREW CHIEF ACUTE CHOLECYSTITIS POCT GLUCOSE - OSUNA DOCKED DEVICE Routine 10/26/2024 11:19 AM PORTABLE TRACK CREW CHIEF HEMOGLOBIN, GLYCOSYLATED STAT 10/26/2024 6:25 AM PORTABLE TRACK CREW CHIEF MAGNESIUM STAT 10/26/2024 6:25 AM PORTABLE TRACK CREW CHIEF COMPREHENSIVE METABOLIC PANEL STAT 10/26/2024 6:25 AM PORTABLE TRACK CREW CHIEF PROTHROMBIN TIME, VENOUS STAT 10/26/2024 6:25 AM PORTABLE TRACK CREW CHIEF CBC W/DIFF AUTOMATED STAT 10/26/2024 6:25 AM PORTABLE TRACK CREW CHIEF POCT GLUCOSE - OSUNA DOCKED DEVICE Routine 10/26/2024 6:24 AM PORTABLE TRACK CREW CHIEF POCT GLUCOSE - OSUNA DOCKED DEVICE Routine 10/26/2024 1:11 AM PORTABLE TRACK CREW CHIEF PATHOLOGY Routine 10/26/2024 12:00 AM PORTABLE TRACK CREW CHIEF CT ABD+PEL W CON STAT 10/25/2024 10:4 1 PM PORTABLE TRACK CREW CHIEF POCT URINE (BACK OFFICE) STAT 10/25/2024 10:16 PM PORTABLE TRACK CREW CHIEF TROPONIN, QUANT STAT 10/25/2024 10:16 PM PORTABLE TRACK CREW CHIEF HC URINALYSIS AUTO W/O MICRO STAT 10/25/2024 10:11 PM PORTABLE TRACK CREW CHIEF ECG 12-LEAD Routine 10/25/2024 6:50 PM PORTABLE TRACK CREW CHIEF LIPASE STAT 10/25/2024 6:33 PM PORTABLE TRACK CREW CHIEF TROPONIN, QUANT STAT 10/25/2024 6:33 PM PORTABLE TRACK CREW CHIEF COMPREHENSIVE METABOLIC PANEL STAT 10/25/2024 6:33 PM PORTABLE TRACK CREW CHIEF CBC W/DIFF AUTOMATED STAT 10/25/2024 6:33 PM PORTABLE TRACK CREW CHIEF LIPID PANEL Routine 05/22/2023 7:55 AM CDT from Last 3 Months or Most Recently Relevant to Health Maintenance Results * (ABNORMAL) POCT glucose (10/28/2024 11:12 AM PORTABLE TRACK CREW CHIEF) Only the most recent of11 resultswithin the time period is included. GLUCOSE POC 111(H) 70 - 99 mg/dL 10/28/2024 11:26 AM PORTABLE TRACK CREW CHIEF [facility] 10/28/2024 11:1 2 AM PORTABLE TRACK CREW CHIEF us Vivian Alan MD POCT ORDERABLES - DEVICE Fin al Result [facility] [address] [place] [address], [place] [phone] * (ABNORMAL) COMPREHENSIVE METABOLIC PANEL (10/28/2024 4:45 AM PORTABLE TRACK CREW CHIEF) Only the most recent of4 resultswithin the time period is included. [facility] GLUCOSE 91 70 - 99 MG/DL 10/28/2024 6:00 AM [facility] BUN 11 7 - 18 MG/DL 10/28/2024 6:00 AM [facility] CREATININE S/P/B 1.02 0.55 - 1.02 MG/DL 10/28/2024 6:00 AM [facility] SODIUM S/P/B 137 136 - 145 MMOL/L 10/28/2024 6:00 AM [facility] POTASSIUM S/P/B 3.6 3.5 - 5.1 MMOL/L 10/28/2024 6:00 AM [facility] CHLORIDE S/P/B 110 97 - 115 MMOL/L 10/28/2024 6:00 AM [facility] CO2 22.0 21 - 32 MMOL/L 10/28/2024 6:00 AM [facility] CALCIUM S/P/B 8.6 8.5 - 10.1 MG/DL 10/28/2024 6:00 AM [facility] BILIRUBIN TOTAL S/P/B 1.0 0.2 - 1.2 MG/DL 10/28/2024 6:00 AM [facility] Comment: THIS ASSAY IS NOT RECOMMENDED FOR PATIENTS UNDERGOING TREATMENT WITH ELTROMBOPAG DUE TO THE POTENTIAL FOR FALSELY ELEVATED RESULTS. TOTAL PROTEIN S/P/B 7.1 6.4 - 8.2 G/DL 10/28/2024 6:00 AM [facility] ALBUMIN S/P/B 3.0(L) 3.4 - 5.0 G/DL 10/28/2024 6:00 AM [facility] AST 120(H) 15 - 37 U/L 10/28/2024 6:00 AM [facility] ALT 319(H) 14 - 55 U/L 10/28/2024 6:00 AM [facility] ALKALINE PHOSPHATASE S/P/B 92 50 - 136 U/L 10/28/2024 6:00 AM [facility] ANION GAP 5.0 2 - 10 MMOL/L 10/28/2024 6:00 AM [facility] BUN CREATININE RATIO 10.8 6 - 26 10/28/2024 6:00 AM [facility] A/G RATIO 0.7(L) 1.0 - 2.0 RATIO 10/28/2024 6:00 AM [facility] GFR ESTIMATE 68(L) >90 ML/MIN/1.7 3 M2 10/28/2024 6:00 AM [facility] Comment: NOTE: eGFR is not calculated for patients <18 years of age or gender unknown. This is an estimated GFR calculation using the new CKD EPI creatinine equation without race and so does not require a correction factor for race. This estimated GFR should not be used for calculating drug doses. 10/28/2024 4:45 AM PORTABLE TRACK CREW CHIEF Vivian Alan MD LABORATORY Final Result [facility] [address] [place] [address], [place] [phone] * (ABNORMAL) CBC W/DIFF AUTOMATED (10/28/2024 4:45 AM PORTABLE TRACK CREW CHIEF) Only the most recent of4 resultswithin the time period is included. WBC 7.33 4.5 - 11.0 x10'3/uL 10/28/2024 5:35 AM [facility] RBC 3.78(L) 4.20 - 5.40 x10'6/uL 10/28/2024 5:35 AM [facility] HGB 11.2(L) 12.0 - 16.0 G/DL 10/28/2024 5:35 AM [facility] HCT 35.2(L) 38.0 - 48.0 % 10/28/2024 5:35 AM [facility] MCV 93.1 81.0 - 99.0 FL 10/28/2024 5:35 AM [facility] MCH 29.6 27.0 - 31.0 PG 10/28/2024 5:35 AM [facility] MCHC 31.8(L) 32.0 - 36.0 G/DL 10/28/2024 5:35 AM [facility] RDW 13.8 11.5 - 14.5 % 10/28/2024 5:35 AM [facility] PLT 244 130 - 400 x10'3/uL 10/28/2024 5:35 AM [facility] MPV 9.0(L) 9.3 - 12.2 FL 10/28/2024 5:35 AM [facility] DIFFERENTIAL TYPE AUTOMATED DIFFERENTIAL 10/28/2024 5:35 AM [facility] NEUTROPHILS % 49.3 % 10/28/2024 5:35 AM [facility] LYMPHOCYTES % 40.5 % 10/28/2024 5:35 AM PORTABLE TR[employer] CREW CHIEF [facility] MONOCYTES % 6.3 % 10/28/2024 5:35 AM [facility] EOSINOPHILS 3.7 % 10/28/2024 5:35 AM [facility] BASOPHILS 0.1 % 10/28/2024 5:35 AM [facility] IMMATURE GRANS % 0.1 % 10/28/19 5:35 AM [facility] ABS. NEUTROPHILS 3.61 1.80 - 7.70 x10'3/uL 10/28/2024 5:35 AM [facility] ABS. LYMPHOCYTES 2.97 1.00 - 4.80 x10'3/uL 10/28/2024 5:35 AM [facility] ABS. MONOCYTES 0.46 0.24 - 0.86 x10'3/uL 10/28/2024 5:35 AM [facility] ABS. EOSINOPHILS 0.27 0.04 - 0.36 x10'3/uL 10/28/2024 5:35 AM [facility] ABS. BASOPHILS 0.01 0.01 - 0.08 x10'3/uL 10/28/2024 5:35 AM [facility] ABS. IMMATURE GRANULOCYTES 0.01 0.00 - 0.49 x10'3/uL 10/28/2024 5:35 AM [facility] 10/28/2024 4:45 AM PORTABLE TRACK CREW CHIEF Vivian Alan MD LABORATORY Final Result [facility] [address] [place] [address], * HEMOGLOBIN, GLYCATED (10/26/2024 6:25 AM PORTABLE TRACK CREW CHIEF) HGB A1C 5.5 <5.7 % 10/26/2024 7:57 AM PORTABLE TRACK CREW CHIEF [facility] Comment: ADA GUIDELINES 2010 5.7 TO 6.4% INCREASED RISK OF DIABETES > OR = 6.5% CONSISTENT WITH DIABETES ESTIMATED AVG GLUCOSE 111 mg/dL 10/26/2024 7:57 AM PORTABLE TRACK CREW CHIEF [facility] 10/26/2024 6:25 AM PORTABLE TRACK CREW CHIEF Evan Curiel MD LABORATORY Final Resul t Performing Organization Address City/[facility]/ZIP Co de Phone Number [facility] [address] [place] [address], [place] [phone] * (ABNORMAL) PROTHROMBIN TIME, VENOUS (10/26/2024 6:25 AM PORTABLE TRACK CREW CHIEF) PROTIME 13.0(H) 10.2 - 12.9 SEC 10/26/2024 6:59 AM PORTABLE TRACK CREW CHIEF [facility] INR 1.1 10/26/2024 6:59 AM PORTABLE TRACK CREW CHIEF [facility] Comment: Recommended INR Therapeutic Goals: 2.0-3.0 Routine Therapy 2.5-3.5 Mechanical Prosthetic Valves (High Risk) 10/26/2024 6:25 AM PORTABLE TRACK CREW CHIEF Evan Curiel MD LABORATORY Final Resul t [facility] [address] [place] [address], [place] [phone] * MAGNESIUM (10/26/2024 6:25 AM PORTABLE TRACK CREW CHIEF) MAGNESIUM 2.1 1.8 - 2.4 MG/DL 10/26/2024 7:06 AM PORTABLE TRACK CREW CHIEF [facility] 10/26/2024 6:25 AM PORTABLE TRACK CREW CHIEF Evan Curiel MD LABORATORY Final Resul t [facility] [address] [place] [address], * Pathology (10/26/2024 12:00 AM PORTABLE TRACK CREW CHIEF) PATHOLOGY [facility] Department of Laboratory Medicine [address] [place] [address] , extension [phone] Pathology Report Surgical Pathology Report Name: CHANDNI WARD Specimen #: [id number] Age: 10 1975 (Age: 49) Location: [facility] Sex: F Procedure Date: 10/26/2024 Hospital #: [id number] Date Received: 10/27/2024 Date Reported: 10/28/2024 Provider: LOGAN AQUINO MD Source: Gallbladder Clinical History: Acute cholecystitis. FINAL DIAGNOSIS: Gallbladder, cholecystectomy: -Acute and chronic cholecystitis. -Cholelithiasis . Gross Description: Received in formalin, labeled with a patient label and as gallbladder is a 11.0 x 3.0 x 2.5 cm gallbladder with a pink-grace serosa. The cystic duct has a diameter of 0.1 cm and appears patent. The gallbladder is opened to reveal multiple multifaceted pale-grace stones that are 5.0 x 4.0 x 1.0 cm in aggregate. The gallbladder also contains a small amount of pink-grace fluid. The gallbladder is lined by a patchy hemorrhagic pink-grace mucosa. The wall of the gallbladder near the cystic duct is quite firm but no definite mass lesions are identified. The remainder of the gallbladder wall is edematous and has a thickness up to 0.8 cm. No definite mass lesions or polyps are identified. Gis Developer tissue is submitted in cassettes 1 and 2 with the cystic duct margin included in cassette 1. Gross examination (when applicable), interpretation, and sign out were performed at [facility], [address] [place] [address]. Electronically Signed Out CHUY GRULLON MD [facility] TISSUE GALLBLADDER STRUCTURE / Unknown 10/26/2024 2:04 PM PORTABLE TRACK CREW CHIEF Logan Aquino MD PATHOLOGY/CYTOLOGY ORDERA BLES Final Result [facility] [address] [place] [address], [phone] * CT ABD+PEL W IV CON ONLY (10/25/2024 10:41 PM PORTABLE TRACK CREW CHIEF) Anatomical Region Laterality Modality Abdomen Computed Tomogra phy 10/25/2024 10:4 1 PM PORTABLE TRACK CREW CHIEF Impressions 10/25/2024 10:52 PM PORTABLE TRACK CREW CHIEF Impression: 1. Multiple stones are present within the gallbladder. The gallbladder is mildly distended and there is trace pericholecystic fluid. Findings may indicate early acute cholecystitis. 2. Intrahepatic and extrahepatic biliary dilation is identified, similar to prior. Could further correlate with MRCP. 3. Trace free fluid is seen within the pelvis, potentially physiologic. 4. Other chronic and nonemergent findings as above. Referred By: Interpreted By: Torres Kaur MD, 10/25/2024 10:41 PM Narrative 10/25/2024 10:52 PM PORTABLE TRACK CREW CHIEF [address] [address] Examination: CT abdomen and pelvis with IV contrast. Clinical Information: EPIGASTRIC PAIN, HX OF CHOLELITHIASIS Comparison:CT 09/06/2024 and 01/22/2023. Technique: IV contrast: 100 mL Isovue 370. Oral contrast: None. Technical comments: Standard technique. Dose reduction: This CT exam was performed using one or more of the following dose reduction techniques: Automated exposure control, adjustment of the mA and/or kV according to patient size, and/or use of iterative reconstruction technique. Findings: LOWER CHEST Heart is normal in size. Lung bases are clear. No pleural or pericardial effusions. UPPER ABDOMEN Liver and bile ducts: Small cyst redemonstrated within the right lobe. Portal vein and hepatic veins are patent. Intrahepatic and extrahepatic biliary dilation is noted. The CBD measures up to 8 mm in diameter. Findings appear similar to recent prior CT from August 2024. Gallbladder: Multiple stones are present within the gallbladder. The gallbladder is mildly distended. There is trace pericholecystic fluid. Pancreas: No acute inflammatory changes noted. Spleen: Normal. RETROPERITONEUM Adrenals: Normal. Kidneys: Kidneys enhance symmetrically with no solid mass or hydronephrosis. Redemonstrated small cortically based hypodensities appearing similar to prior, technically too small to characterize with CT but likely benign cysts. Lymph nodes: No lymphadenopathy in the abdomen or pelvis. BOWEL AND PERITONEUM Bowel: Normal in caliber and wall thickness. The appendix appears normal. No acute inflammatory process identified. Free air or fluid: Trace free fluid is present within the pelvis, potentially physiologic. VASCULATURE The abdominal aorta is normal in caliber. PELVIS No abnormality. BONES/SOFT TISSUES No acute osseous abnormalities. Numerous small hyperdensities seen within the right medial thigh and perineal soft tissues appearing similar to the recent prior study. Procedure Note Torres Kaur MD - 10/25/2024 [place] [id number] Examination: CT abdomen and pelvis with IV contrast. Clinical Information: EPIGASTRIC PAIN, HX OF CHOLELITHIASIS Comparison:CT 09/06/2024 and 01/22/2023. Technique: IV contrast: 100 mL Isovue 370. Oral contrast: None. Technical comments: Standard technique. Dose reduction: This CT exam was performed using one or more of thefollowing dose reduction techniques: Automated exposure control,adjustment of the mA and/or kV according to patient size, and/or use ofiterative reconstruction technique. Findings: LOWER CHEST Heart is normal in size. Lung bases are clear. No pleural or pericardialeffusions. UPPER ABDOMEN Liver and bile ducts: Small cyst redemonstrated within the right lobe.Portal vein and hepatic veins are patent. Intrahepatic and extrahepaticbiliary dilation is noted. The CBD measures up to 8 mm in diameter.Findings appear similar to recent prior CT from August 2024. Gallbladder: Multiple stones are present within the gallbladder. Thegallbladder is mildly distended. There is trace pericholecystic fluid. Pancreas: No acute inflammatory changes noted. Spleen: Normal. RETROPERITONEUM Adrenals: Normal. Kidneys: Kidneys enhance symmetrically with no solid mass orhydronephrosis. Redemonstrated small cortically based hypodensitiesappearing similar to prior, technically too small to characterize with CTbut likely benign cysts. Lymph nodes: No lymphadenopathy in the abdomen or pelvis. BOWEL AND PERITONEUM Bowel: Normal in caliber and wall thickness. The appendix appears normal.No acute inflammatory process identified. Free air or fluid: Trace free fluid is present within the pelvis,potentially physiologic. VASCULATURE The abdominal aorta is normal in caliber. PELVIS No abnormality. BONES/SOFT TISSUES No acute osseous abnormalities. Numerous small hyperdensities seen withinthe right medial thigh and perineal soft tissues appearing similar to therecent prior study. Impression: 1. Multiple stones are present within the gallbladder. The gallbladder ismildly distended and there is trace pericholecystic fluid. Findings mayindicate early acute cholecystitis. 2. Intrahepatic and extrahepatic biliary dilation is identified, similarto prior. Could further correlate with MRCP. 3. Trace free fluid is seen within the pelvis, potentially physiologic. 4. Other chronic and nonemergent findings as above. Referred By: Interpreted By: Torres Kaur MD, 10/25/2024 10:41 PM us Tracy [address] CT Final Resul t * POCT urine (10/25/2024 10:16 PM PORTABLE TRACK CREW CHIEF) URINE HCG TEST NEGATIVE Internal Control: VALID us Tracy HILL POINT OF CARE TEST ORDERABL ES Final Result * TROPONIN, QUANT (10/25/2024 10:16 PM PORTABLE TRACK CREW CHIEF) Only the most recent of2 resultswithin the time period is included. TROPONIN I HIGH SENSITIVITY 25 <54 ng/L 10/25/2024 10:50 PM PORTABLE TRACK CREW CHIEF [facility] Comment: HIGH DOSES OF BIOTIN, TROPONIN-SPECIFIC AUTOANTIBODIES, AND ANTIBODY THERAPY CONTAINING HAMA MAY INTERFERE WITH THIS TEST RESULT. CORRELATION TO CLINICAL HISTORY AND PRESENTATION RECOMMENDED. 10/25/2024 10:1 6 PM PORTABLE TRACK CREW CHIEF us Tracy HILL LABORATORY Final Resul t [facility] [address] [place] [address], * (ABNORMAL) URINALYSIS (10/25/2024 10:11 PM PORTABLE TRACK CREW CHIEF) SPECIMEN TYPE URINE CLEAN CATCH 10/25/2024 10:16 PM PORTABLE TRACK CREW CHIEF [facility] COLOR (U) LIGHT YELLOW 10/25/2024 11:25 PM PORTABLE [employer] CREW CHIEF [facility] TRANSPARENCY CLEAR 10/25/2024 11:25 PM PORTABLE [employer] CREW CHIEF [facility] SPECIFIC GRAVITY (U) 1.023 1.001 - 1.030 10/25/2024 11:25 PM PORTABLE TR[employer] CREW CHIEF [facility] U PH 6.5 5.0 - 9.0 10/25/2024 11:25 PM PORTABLE [employer] CREW CHIEF [facility] LEUKOCYTES (U) 500(A) NEGATIVE 10/25/2024 11:25 PM PORTABLE [employer]W CHIEF [facility] NITRITES NEGATIVE NEGATIVE 10/25/2024 11:25 PM PORTABLE [employer]W CHIEF [facility] PROTEIN RANDOM (U) 20 <30 MG/DL 10/25/2024 11:25 PM PORTABLE TR[employer] CREW CHIEF [facility] GLUCOSE (U) 200(A) NORMAL MG/DL 10/25/2024 11:25 PM [facility] KETONES MG/DL (U) 40(A) NEGATIVE MG/DL 10/25/2024 11:25 PM PORTABLE TR[employer] CREW CHIEF [facility] Comment: Successful Call: [facility] called 10/25/2024 11:26 PM to EMERGENCY ROOM ([id number]/ANGELA RODRIGUEZ) by [id number]. UROBILINOGEN NORMAL NORMAL MG/DL 10/25/2024 11:25 PM [employer]ABLE [employer]W CHIEF [facility] BILIRUBIN (U) NEGATIVE NEGATIVE MG/DL 10/25/2024 11:25 PM PORTABLE TR[employer] CREW CHIEF [facility] BLOOD (U) NEGATIVE NEGATIVE 10/25/2024 11:25 PM PORTABLE TR[employer] CREW CHIEF [facility] MUCUS RARE /LPF 10/25/2024 11:25 PM PORTABLE TR[employer] CREW CHIEF [facility] WBC/HPF 2 <6 /HPF 10/25/2024 11:25 PM PORTABLE TR[employer] CREW CHIEF [facility] RBC/HPF 4 <6 /HPF 10/25/2024 11:25 PM PORTABLE TR[employer] CREW CHIEF [facility] SQUAMOUS EPITHELIALS FEW /HPF 10/25/2024 11:25 PM PORTABLE [employer]W CHIEF [facility] URINE SPECIMEN OBTAINED BY CLEAN CATCH PROCEDURE / Unknown 10/25/2024 10:11 PM PORTABLE TR[employer] CREW CHIEF Tracy HILL URINE ORDERABLES Final Resu lt [facility] [address] [place] [address], [place] [phone] * ECG 12 lead (10/25/2024 6:50 PM PORTABLE TR[employer] CREW CHIEF) 10/25/2024 6:50 PM PORTABLE TR[employer] CREW CHIEF Narrative [facility] ([place] RAD - 10/26/2024 8:16 AM PORTABLE TRACK CREW CHIEF [address] Test Date: 2024-10-25 Pat Name: CHANDNI WARD Department: 41 Room: 4 Gender: Female Marketing 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: [id number] : 1975 Requested By: TRACY VICTORIA Order Number: [id number] Reading MD: Juan José Finch Measurements Intervals [place] Rate: 57 P: 58 SD: 165 QRS: 10 QRSD: 75 T: 37 QT: 420 QTc: 412 Interpretive Statements SINUS BRADYCARDIA LOW QRS VOLTAGE IN PRECORDIAL LEADS [QRS DEFLECTION < 1.0 mV IN CHEST LEADS] Compared to ECG 05/20/2023 23:00:01 Low QRS voltage now present Sinus tachycardia no longer present [employer]LE [employer] CREW CHIEF Procedure Note Juan José Finch MD - 10/26/[address] Test Date: 2024-10-25 Pat Name: CHANDNI WARD Department: 41 Room: 4 Gender: Female Marketing 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 Coordinator: [id number] : 1975 Requested By: TRACY VICTORIA Order Number: [id number] Reading MD: Juan José Finch Measurements Intervals [place] Rate: 57 P: 58 SD: 165 QRS: 10 QRSD: 75 T: 37 QT: 420 QTc: 412 Interpretive Statements SINUS BRADYCARDIA LOW QRS VOLTAGE IN PRECORDIAL LEADS [QRS DEFLECTION < 1.0 mV IN CHESTLEADS] Compared to ECG 05/20/2023 23:00:01 Low QRS voltage now present Sinus tachycardia no longer present ABLE TRACK CREW CHIEF us Tracy HILL ECG ORDERABLES Final Resul t Performing Organization Address City/[facility]/ZIP Co de Phone Number [facility] ([facility]) RAD * LIPASE (10/25/2024 6:33 PM PORTABLE TRACK CREW CHIEF) LIPASE 21 13 - 75 UNITS/L 10/25/2024 7:37 PM PORTABLE TRACK CREW CHIEF [facility] 10/25/2024 6:33 PM PORTABLE TRACK CREW CHIEF us Tracy HILL LABORATORY Final Resul t [facility] [address] [place] [address], * LIPID PANEL (05/22/2023 7:55 AM CDT) CHOLESTEROL 155 <200 MG/DL 05/22/2023 8:35 AM CDT [facility] TRIGLYCERIDES 114 <150 MG/DL 05/22/2023 8:35 AM CDT [facility] HDL 57 >40.0 MG/DL 05/22/2023 8:35 AM CDT [facility] LDL (CALCULATED) 75 <100 MG/DL 05/22/20 8:35 AM CDT [facility] NON HDL CHOLESTEROL 98 <130 MG/DL 05/22 8:35 AM CDT [facility] CHOL/HDL RATIO 2.7 0.0 - 4.5 05/22/2023 8:35 AM CDT [facility] VLDL CALCULATION 23 5 - 55 MG/DL 05/22/2023 8:35 AM CDT [facility] LIPID INTERPRETATION 05/22/2023 8:35 AM CDT [facility] Comment: [facility] REPORT RECOMMENDATIONS: ADULT CHILD LOW RISK: CHOLESTEROL <200 <170 TRIGLYCERIDE <150 --- HDL >=60 --- LDL <100 <110 BORDERLINE: CHOLESTEROL 200-239 170-199 TRIGLYCERIDE 150-199 --- HDL 40-59 --- LDL 100-159 110-129 HIGH RISK: CHOLESTEROL >=240 >=200 TRIGLYCERIDE >=200 --- HDL <40 --- LDL >=160 >=130 05/22/2023 7:55 AM CDT Evan Curiel MD LABORATORY Final Resul t [facility] [address] [place] [address], from Last 3 Months or Most Recently Relevant to Health Maintenance Additional Health Concerns Infection Onset Date Last Indicated MRSA Comment:05/21/23 eloy (GERMAN) 05/21/2023 05/21/2023 Insurance MEDICAID Advance Directives * Full Code (Latest Code Status on File) Date Activated Date Inactivated Comments 10/26/2024 12:03 AM 10/28/2024 5:08 PM * Full Code Date Activated Date Inactivated Comments 05/21/2023 1:40 AM 05/24/2023 5:47 PM Care Teams Tobacco Farmworker Relationship Specialty Start Date End Date Loren Jaime MD [address] [place] [address] PCP - General FAMILY PRACTICE 05/06/21
--- OUTSIDE RECORDS SUMMARY | 2025-01-12 16:33 | XMS_ITS | Data Portability ---
Author Organization [place] [facility], Main Office Address [address] [place] [address] Care Team Providers Care Engineering Lab Technician Name Role Phone GAYLE GARCIA Primary Care Provider Assessment No assessment recorded. Plan of Treatment Reminders Order Date Submit Date Provider Last Modified By Organization Details Last Modified Time Details Appointments None recorded. Lab glycohemogl obin, total, blood 2023 024 [facility] ([facility]), [address] [place], [address], 15:27:23 Referral None recorded. Procedures None recorded. Surgeries None recorded. Imaging None recorded. Medication Orders Medrol (Crow) 4 mg tablets in a dose pack 2024 025 [facility] [id number], [address], 10:22:14 benzonatate 200 mg capsule 2023 024 [email or web address] [id number], [address], 09:06:48 Patient TargetsNo targets recorded. Patient Instructions Encounter Date Encounter Id Patient Instructions Last Modified By Organization Details Last Modified Time 01/06/2025 [id number] advised to continue to finish her previously prescribed Augmentin for sinusitis. Added Medrol Dosepak for inflammation reduction. She will have a sinus CT completed. We will follow up when results become available. [email or web address] Not available 01/06/2025 10:23:10 Reason for Referral None Reported. Results Created Date Observation Date Name Description Value Unit Range Abnormal Flag Note LastModifiedBy Organization Detail LastModifiedTime 09/25/20 24 09/25/2024 HEMOG LOBIN A1C hemoglobin A1C 6.3 %_of_ total _HGB <5.7 high For someo ne witho ut known diabe shavonne, a hemog lobin A1c value betwe en 5.7% and 6.4% is consi stent with predi abete s and shoul d be confi rmed with a follo w-up test. For someo ne with known diabe shavonne, a value <7% indic ates that their diabe shavonne is well contr olled . A1c targe ts shoul d be indiv idual ized based on durat ion of diabe shavonne, age, comor bid condi tions , and other consi derat ions. This assay resul t is consi stent with an incre ased risk of diabe shavonne. Curre ntly, no conse nsus exist s lito givens use of hemog lobin A1c for diagn osis of diabe shavonne for child patrizia. NO COLLE CTION DATE RECEI YUDI. WE HAVE USED THE DATE THE SPECI MEN WAS RECEI YUDI BY THIS LABOR ATORY THE COLLE CTION DATE. IF THIS IS INCOR RECT, PLEAS E CONTA CT CLIEN T SERVI JASWANT. PHONE NUMBE R: [phone] Not Available [facility] [place] [address] [place], [address], 09/25/2024 11:14:16 11/02/19 25 11/02/2024 pregn liz test, urine HCG negati ve Not Available [facility] [address], [place], [address], 11/02/2024 09:11:51 Result Notes None recorded. Problems Name Problem SNOMED Code Status Onset Date Resolution Date Notes Provider Name and Address Organization Details Recorded Time Gastroesophag eal reflux disease 156295703 Active 2022 LIZ Mccormack [address] [place] [address], [facility] [address], [place], [address] , [place] [facility] 3 10:43:12 Persistent cough 190473338 Active 2022 LIZ Mccormack [address], [address], [place], [address] , [place] [facility] 3 14:22:49 Asthma 961650098 Active Not Available [facility] 3 00:49:40 Vaginitis 47398202 Active 2022 Loren Jaime MD [address], [address], [place], [address] , [email or web address] [facility] 3 14:55:02 Laceration - injury 077212415 Active Not Available [facility] 3 00:49:41 Solitary nodule of lung 676670874 Active Not Available [facility] 3 00:49:41 Seasonal allergy 015391986 Active 2019 Not Available [facility] 3 00:49:41 Type 2 diabetes mellitus 52148779 Active 2022 HENRY Shafer [address], [address], [place], [address] , [facility] 3 09:38:41 Paresthesia 54971521 Active 2022 HENRY Shafer [address], [address], [place], [address] , [facility] 3 09:42:30 Cough 71628633 Active 2022 Loren Jaime MD [address], [address], [place], [address] , [facility] 3 07:45:40 Acute asthma 273159419 Active 2022 Loren Jaime MD [address], [address], [place], [address] , [place] [facility] 3 08:50:41 Candidal intertrigo 154586912 Active 2022 Loren Jaime MD [address], [address], [place], [address] , [place] [facility] 3 13:43:02 Abnormal vaginal bleeding 719071425 Active 2023 HENRY Shafer [address], [address], [place], [address] , [place] [facility] 4 14:32:11 Eczema 26344681 Active 2023 Loren Jaime MD [address], [address], [place], [address] , [place] [facility] 4 12:57:51 Acute right otitis media 547670303 Active 2023 Loren Jaime MD [address], [address], [place], [address] , [place] [facility] 4 12:57:59 Acute upper respiratory infection 10525193 Active 2023 HENRY Blackman [address], [address] [facility], [place], [address] , [place] [facility] 4 16:57:23 Sense of smell altered 466107320 Active 2024 HENRY Blackman [address], [place] [address], [place], [address] , [place] [facility] 5 10:44:06 Chronic sinusitis 51683129 Active 2024 Tiffany Sam RN null, [place] [facility] 5 10:13:25 Loss of sense of smell 46018205 Active 2024 SIM Salazar [address] [facility], [place] [address], [place], [address] , [place] [facility] 5 10:21:10 Problem Notes None recorded. Medical Equipment None Reported. Allergies Allergen ID Allergen Name Allergen Category Reaction Reaction Severity Criticality Documentation Date Start Date Code Code System Note Provider Name and Address Organization Details Recorded Time [facility] Not [facility] Not available Not available 12/11/2022 06932 8 RxNorm wheez y Mary Eunice, CUSTOMER ASSISTANCE ASSOCIATE null, [facility] [employer] [facility] 5 09:56:22 811 Advil medicatio n Not available Not available Not available 12/11/2022 11443 0 RxNorm wheez y Mary Eunice, CUSTOMER ASSISTANCE ASSOCIATE null, [facility] [employer] [facility] 5 09:56:11 Medications Name Sig Start Date Stop Date Status Note LastModified by Organization Details LastModified Time promethazin e-DM 6.25 mg-15 mg/5 mL oral syrup TAKE 5ML BY MOUTH EVERY 4 HOURS 06/01 completed Not Available Not Available Not Available neomycin-po lymyxin-hyd rocort 3.5 mg/mL-10,00 0 unit/mL-1 % ear solution INSTILL 4 DROPS INTO AFFECTED EAR(S) BY OTIC ROUTE 3 TIMES PER DAY FOR 7 DAYS 01/06 completed Not Available Not Available Not Available prednisone 10 mg tablet PLEASE SEE ATTACHED FOR DETAILED DIRECTION S 04/01 completed Not Available Not Available Not Available doxycycline hyclate 100 mg capsule Take 1 capsule twice a day by oral route for 10 days. 11/17 completed Not Available Not Available Not Available cefuroxime axetil 250 mg tablet 08/23 completed Not Available Not Available Not Available albuterol sulfate 2.5 mg/3 mL (0.083 %) solution for nebulizatio n USE 1 VIAL VIA NEBULIZER EVERY 6 HOURS NEEDED active Not Available Not Available No t Available azithromyci n 250 mg tablet TAKE 2 TABLETS BY MOUTH TODAY, THEN TAKE 1 TABLET DAILY FOR 4 DAYS DIRECTED 01/06 completed Not Available Not Available Not Available fluconazole 150 mg tablet TAKE 1 TABLET BY MOUTH EVERY 72 HOURS 06/01 completed Not Available Not Available Not Available benzonatate 200 mg capsule Take 1 capsule 3 times a day by oral route as needed 01/06 completed Not Available Not Available Not Available hydrocodone 5 mg-acetamin ophen 325 mg tablet TK 1 T PO EVERY 4 HOURS PRF PAIN 12/18 completed Not Available Not Available Not Available ondansetron HCl 8 mg tablet active Not Available Not Available Not Available Medrol (Crow) 4 mg tablets in a dose pack Take 1 dose pk by oral route. 2024 active Not Available Not Available Not Avai lable prednisone 20 mg tablet TAKE 2 TABLETS BY MOUTH EVERY DAY 01/06 completed Not Available Not Available Not Available metronidazo le 500 mg tablet TAKE 1 TABLET BY MOUTH TWICE A DAY FOR 7 DAYS active Not Available Not Available No t Available fexofenadin e 180 mg tablet Take 1 tablet every day by oral route for 30 days. 06/01 completed Not Available Not Available Not Available ciprofloxac in 500 mg tablet 08/23 completed Not Available Not Available Not Available Tamiflu 75 mg capsule 12/18 completed Not Available Not Available Not Available sulfamethox azole 800 mg-trimetho prim 160 mg tablet TAKE 1 TABLET BY MOUTH TWICE A DAY FOR 10 DAYS 06/18 completed Not Available Not Available Not Available triamcinolo ne acetonide 0.1 % topical cream APPLY A THIN LAYER TO THE AFFECTED AREA(S) 2 TIMES PER DAY NEEDED 01/06 completed Not Available Not Available Not Available methylpredn isolone acetate 80 mg/mL suspension for injection Take 80 mg by injection route. 04/01 completed Not Available Not Available Not Available oxycodone-a cetaminophe n 5 mg-325 mg tablet TAKE 1 TABLET BY MOUTH EVERY 4 HOURS NEEDED FOR ACUTE PAIN, LESS THAN 7 DAY SUPPLY 01/06 completed Not Available Not Available Not Available amoxicillin 875 mg tablet Take 1 tablet every 12 hours by oral route for 7 days. active Not Available Not Available No t Available benzonatate 100 mg capsule Take 1 capsule 3 times a day by oral route. 08/25 completed Not Available Not Available Not Available triamcinolo ne acetonide 40 mg/mL suspension for injection 1 ml IM x 1 06/18 completed Not Available Not Available Not Available cephalexin 500 mg capsule TK ONE C PO Q 6 H 04/01 completed Not Available Not Available Not Available nystatin 100,000 unit/gram topical cream APPLY TO THE AFFECTED AREA(S) BY TOPICAL ROUTE 2 TIMES PER DAY NEEDED FOR RASH 06/01 completed Not Available Not Available Not Available prednisone 50 mg tablet TAKE 1 TABLET BY MOUTH DAILY FOR 4 DAYS. 06/01 completed Not Available Not Available Not Available polymyxin B sulfate 10,000 unit-trimet hoprim 1 mg/mL eye drops INSTILL 1 DROP INTO RIGHT EYE EVERY 3 HOURS WHILE AWAKE FOR 7 DAYS. 6 DOSES PER 24HRS MAX active Not Available Not Available No t Available mometasone 50 mcg/actuati on nasal spray 2 sprays ien qday 06/01 completed Not Available Not Available Not Available budesonide 0.5 mg/2 mL suspension for nebulizatio n ADD 0.5MG (2ML) TO 120 ML NORMAL SALINE AND IRRIGATE IN NOSE TWICE DAILY 01/06 completed Not Available Not Available Not Available cephalexin 500 mg tablet Take 1 tablet twice a day by oral route for 7 days. 04/01 completed Not Available Not Available Not Available montelukast 10 mg tablet Take 1 tablet every day by oral route. 06/01 completed Not Available Not Available Not Available albuterol sulfate HFA 90 mcg/actuati on aerosol inhaler INHALE 2 PUFFS BY MOUTH EVERY 4-6 HOURS NEEDED active Not Available Not Available No t Available Lomotil 2.5 mg-0.025 mg tablet Take 2 tablets 4 times a day by oral route as needed. 02/13 completed Not Available Not Available Not Available fluticasone propionate 50 mcg/actuati on nasal spray,suspe nsion 2 sprays each nostril qd 06/01 completed Not Available Not Available Not Available medroxyprog esterone 150 mg/mL intramuscul ar suspension Inject 1 mL every 3 months by intramusc ular route. 01/06 completed pt ana maria well Not Available Not Available Not Available loratadine 10 mg tablet TAKE 1 TABLET BY MOUTH EVERY DAY 06/01 completed Not Available Not Available Not Available amoxicillin 875 mg-potassiu m clavulanate 125 mg tablet TAKE 1 TABLET BY MOUTH EVERY 12 HOURS FOR 10 DAYS active Not Available Not Available No t Available oxycodone 5 mg tablet 04/01 completed Not Available Not Available Not Available neomycin-po lymyxin-hyd rocort 3.5 mg-10,000 unit/mL-1 % ear drops,susp INSTILL 4 DROPS INTO LEFT EAR EVERY 8 HOURS 04/01 completed Not Available Not Available Not Available Depo-[employer] Operations Specialist a 150 mg/mL intramuscul ar syringe Inject 1 mL every 3 months by intramusc ular route. 2024 active Not Available Not Available Not Avai lable Klor-Con M20 mEq tablet,exte nded release 06/01 completed Not Available Not Available Not Available Canton Saline 0.65 % nasal drops Take 2 drops 3 times a day by nasal route. 06/05 completed Not Available Not Available Not Available nitrofurant oin monohydrate /macrocryst als 100 mg capsule 03/05 completed Not Available Not Available Not Available promethazin e 04/01 completed Not Available Not Available Not Available Advair HFA 115 mcg-21 mcg/actuati on aerosol inhaler Inhale 2 puffs twice a day by inhalatio n route for 30 days. 06/18 completed Not Available Not Available Not Available budesonide- formoterol HFA 160 mcg-4.5 mcg/actuati on aerosol inhaler INHALE 2 PUFFS BY MOUTH TWICE A DAY active Not Available Not Available No t Available Lantus Solostar U-100 Insulin 100 unit/mL (3 mL) subcutaneou s pen INJECT 20 UNITS INTO THE SKIN NIGHTLY AT BEDTIME dx e11.9 06/01 completed Not Available Not Available Not Available Humalog KwikPen (U-100) Insulin 100 unit/mL subcutaneou s INJECT 12 UNITS INTO THE SKIN 3 (THREE) TIMES DAILY WITH MEALS completed Not Available Not Available Not Available Dulera 100 mcg-5 mcg/actuati on HFA aerosol inhaler Inhale 2 puffs twice a day by inhalatio n route. 06/18 completed Not Available Not Available Not Available OneTouch Verio test strips USE 1 STRIP IN METER TO CHECK BLOOD SUGAR 3 TIMES DAILY 01/06 completed Not Available Not Available Not Available Virtussin AC 10 mg-100 mg/5 mL oral liquid TAKE 5 ML BY MOUTH EVERY 4 HOURS NEEDED FOR COUGH OR NASAL CONGESTIO N 06/18 completed Not Available Not Available Not Available Farxiga 5 mg tablet TAKE 1 TABLET BY MOUTH EVERY DAY active Not Available Not Available No t Available Spiriva Respimat 1.25 mcg/actuati on solution for inhalation Inhale 2 puffs every day by inhalatio n route. 06/23 completed Not Available Not Available Not Available TRUEplus Pen Needle 31 gauge x 3/16 USE 1 NEEDLE TO INJECT INSULIN 4 TIMES DAILY active Not Available Not Available No t Available fluticasone 113 mcg-salmete rol 14 mcg/actuati on breath activated powdr INHALE 1 PUFF BY MOUTH TWICE A DAY 06/18 completed Not Available Not Available Not Available Xhance 93 mcg/actuati on breath activated aerosol SPRAY 2 SPRAYS INTO THE NOSE ONCE DAILY 06/01 completed Not Available Not Available Not Available OneTouch Delica Plus Lancet 33 gauge USE 1 LANCET TO PRICK SKIN 3 TIMES DAILY 01/06 completed Not Available Not Available Not Available OneTouch Verio Reflect Meter active Not Available Not Available Not Available FreeStyle Jay Jay 2 Sensor kit USE DIRECTED. CHANGE EVERY 14 DAYS active Not Available Not Available No t Available Breztri Aerosphere 160 mcg-9mcg-4. 8mcg/actuat ion HFA aerosol inhaler Inhale 2 puff(s) twice a day by inhalatio n route. 01/06 completed Not Available Not Available Not Available Vitals Date Recorded Body height Body mass index (BMI) Body weight Body temperature Oxygen saturation Oxygen saturation in Arterial blood by Pulse oximetry Heart rate Systolic blood pressure Diastolic blood pressure Provider Name and Address Organization Details Last Updated DateTime 162.56 cm 31.8 kg/m2 25801.5 9 g 98.1 [degF] 98.1 % 98.1 % 80 /min 142 mm[Hg] 68 mm[Hg] Danae Ward RN [facility] 14:22:59 Date Recorded Body height Body mass index (BMI) Body weight Body temperature Provider Name and Address Organization Details Last Updated DateTime 01/06/2025 162.56 cm 32.1 kg/m2 30324.05 g 97 [degF] Mary Dawson CNA [employer] [facility] 01/06/2025 10:02:48 Social History Question Answer Notes LastModified by Organizat ion Details LastModified Time Tobacco Smoking Status Never Smoker Not Available [employer] 12/11/2022 00:42:53 What Is Your Level Of Alcohol Consumption? None [email or web address] Information not available 01/06/2025 What Is Your Level Of Caffeine Consumption? Moderate [id number] Information not available 12/11/2022 How Much Tobacco Do You Chew? None [id number] Information not available 12/11/2022 What Type Of Diet Are You Following? REGULAR [id number] Information not available 12/11/2022 Which Illicit Or Recreational Drugs Have You Used? No [id number] Information not available 12/11/2022 Do You Or Have You Ever Used E-cigarettes Or Vape? Never Used Electronic Cigarettes [id number] Information not available 12/11/2022 Are There Any Guns Present In Your Home? No [id number] Information not available 12/11/2022 Do You Or Have You Ever Used Smokeless Tobacco? Never Used Smokeless Tobacco [id number] Information not available 12/11/2022 How Much Tobacco Do You Smoke? No [id number] Information not available 12/11/2022 Sex: Unknown Functional Status Question Answer Note LastModified by [employer] Details LastModified Time What is your exercise level? Moderate [id number] Information not available 12/11/2022 Mental Status None recorded. 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 Breast Problems no Obstetrics History GPAL:G 0 P 0 0 0 0 Past Encounters Encounter ID Performer Location Encounter Start Date Encounter Closed Date Diagnosis/Indication Diagnosis SNOMED-CT Code Diagnosis ICD10 Code Diagnosis Note [id number] [facility] [address] [place] [address] 02/13/2021 00:00:00 02/13/2021 08:19:25 [id number] [facility] [address] [place] [address] 04/18/2021 00:00:00 04/18/2021 18:41:30 [id number] [facility] [address] [facility] [place] [address] 06/21/2021 00:00:00 06/21/2021 15:05:13 [id number] [facility] [place] [address] [place] [address] 07/30/2021 00:00:00 08/20/2021 16:07:11 [id number] [facility] [place] [address] [place] [address] 10/08/2021 00:00:00 10/09/2021 16:39:01 [id number] [facility] [place] [address] [place] [address] 11/20/2021 00:00:00 11/20/2021 17:37:22 [id number] [facility] [place] [address] [place] [address] 01/04/2022 00:00:00 03/05/2022 12:14:28 [id number] [facility] [place] [address] [place] [address] 02/25/2022 00:00:00 02/26/2022 15:06:15 [id number] [facility] [place] [address] [place] [address] 03/20/2022 00:00:00 03/20/2022 16:11:09 [id number] [facility] [place] [address] [place] [address] 04/05/2022 00:00:00 04/05/2022 14:37:57 [id number] [facility] [place] [address] [place] [address] 05/23/2022 00:00:00 05/23/2022 18:55:54 [id number] [facility] [place] [address] [place] [address] 07/10/2022 00:00:00 07/10/2022 13:02:07 [id number] [facility] [place] [address] [place] [address] 09/17/2022 00:00:00 09/17/2022 12:26:52 [id number] [facility] Primary [facility] [place] [address] [address] [facility] [address] [place], [place] [address] 10/10/2022 00:00:00 10/10/2022 14:16:14 [id number] Loren Jaime MD [facility] Primary Care [place] [address] [facility] [address] [place], [place] [address] 01/06/2023 12:59:50 01/13/2023 10:58:12 [id number] LIZ Mccormack [facility] [place] [address] [place] [address] [address] [place], [place] [address] 01/29/2023 10:29:43 01/29/2023 10:58:00 Gastroesophageal reflux disease 399690339 K21.9 Seen at ER 01/22/23. Diagnosed with GERD/esoph ageal thickening .Will refer to GI for further evaluation /scope. Continue omeprazole . [id number] LIZ Mccormack [facility] [place] [address] [facility] [address] [place], [place] [address] 04/01/2023 14:02:11 04/01/2023 15:23:16 Asthma 915929904 J45.909 Continue albuterol inhaler/ne bulizer as needed.If symptoms continue to become more severe/apple quent, will plan to refer to pulmonolog y. Persistent cough 7730584 02 R05.3 Continue promethazi ne and benzonatat e. [id number] HENRY Shafer [facility] Primary Care [place] [address] [facility] [address] [place], [place] [address] 04/14/2023 14:19:37 04/14/2023 14:21:16 [id number] Loren Jaime MD [facility] Primary Care [place] [address] [facility] [address] [place], [place] [address] 05/05/2023 12:13:02 05/05/2023 12:13:28 [id number] SIM Shafer-C [facility] Primary Care [facility] [address] [facility] [address] [place] [address] 06/04/2023 09:16:28 06/04/2023 10:04:59 Type 2 diabetes mellitus 90773034 E11.9 Monitor BS as directed, keep log- check AM fasting, and 2 hours after meals, currently as low as 57 and as high as 160sEncour aged fresh fruits and veggies.Ex ercise portion controlMon itor weight dailyConti nue lantusLowe r humalog to 10 units/meal f/u in 2 weeks Paresthesia 69279398 R20 .2 not bad enough that she wants to treat at this timeEncour aged to continue monitoring her blood sugars with meals until meds adjusted/c hanged [id number] Loren Jaime MD [facility] Primary Care [facility] [address] [facility] [address] [facility] [place] [address] 06/18/2023 13:51:59 06/18/2023 14:23:30 Asthma 253551743 J45.909 samples of breztri 2 puffs bid, rinse mouth after usecall Friday or send message through portal with updatef/u in 4 weeks Type 2 debra betes mellitus 11922581 E11.9 Newly dxhaving some overnight lowsdecrea se humalog to 4 units TID ACincrease lantus to 26 units qhseat smaller, frequent mealsfrees tyle jay jay 2 samples given, will send scriptcall or send message on portal Friday with blood sugars so insulin can be adjusted if neededgoal is to d/c humalog completely ok to return to work Friday06/23/23 without restrictio n [id number] SIM Kim [facility] [address] [facility] [address] [place] [address] 07/11/2023 14:55:01 07/11/2023 16:15:08 [id number] LIZ Mccormack [facility] Primary Care [facility] [address] [facility] [address] [place] [address] 08/25/2023 15:06:14 08/25/2023 15:57:19 Type 2 diabetes mellitus 67742886 E11.9 Pt. states she stopped humalog and has just been doing 4 units of lantus at night. Looking through patient cases, I am not sure this was the dose of lantus recommende d to her, but I clarified multiple times that this is what she has been doing. States blood sugars have been stable, highest has been around 225 but usually under 200. Will plan to recheck labs today. Continue Lantus 4 units at bedtime. Will adjust as necessary. Continue smaller, more frequent meals and decreasing carbs/suga r. [id number] Loren Jaime MD [facility] Primary Care [facility] [place] [address] [facility] [address] [place] [address] 10/14/2023 14:29:17 10/14/2023 14:54:27 [id number] HENRY Shafer [facility] Primary Care [facility] [address] [facility] [address] [place] [address] 12/11/2023 14:03:09 12/11/2023 15:30:24 Type 2 diabetes mellitus [id number] E11.9 -chronic, stable with use of meds (lantus 4 units at bedtime)-b lood sugars have been as high as 130, low as 69-appetit e normal-con tinues to do gym/home exercises every other day-Last a1c 7.0 in 09/04-labs obtained [id number] Loren Jaime MD [facility] Primary [facility] [place] [address] [facility] [address] [place] [address] 01/14/2024 15:55:41 01/14/2024 16:13:34 [id number] HENRY Shafer [facility] Primary [facility] [place] [address] [facility] [address] [place] [address] 04/29/2024 17:05:18 04/29/2024 17:30:34 [id number] HENRY Blackman [facility] [place] [address] [facility] [address] [place] [address] 06/01/2024 16:23:58 06/01/2024 17:03:57 Type 2 diabetes mellitus [id number] E11.9 Acute uppe r respiratory infection [id number] J06.9 [id number] HENRY Shafer [facility] Primary Care [facility] [address] [facility] [address] [place] [address] 07/30/2024 16:37:09 07/30/2024 16:50:29 [id number] HENRY Blackman [facility] Primary Care [facility] [address] [facility] [address] [place] [address] 09/21/2024 14:15:04 09/21/2024 16:32:46 Cough [id number] R05.9 Will treat as listed below. Patient will follow up as needed. Type 2 debra betes mellitus [id number] E11.9 Will check labs as listed below.Amber ent aware of Diabetic Eye Exam.Discu ssed diabetic diet and routine exercise. Asthma [id number] J45.90 9 Well controlled on current medication s, no controls at this time. [id number] HENRY Blackman [facility] [address] [facility] [address] [place] [address] 11/02/2024 10:20:56 11/02/2024 10:36:04 [id number] HENRY Blackman [facility] Primary Care [facility] [address] [facility] [address] [place] [address] 12/27/2024 14:43:33 12/27/2024 15:04:09 [id number] SIM Salazar [facility] ENT Glendy Edwards [address] [place] [address] 01/06/2025 09:45:50 01/06/2025 10:27:12 Loss of sense of smell [id number] R43.0 Chronic sinusitis [id number] J32.9 Health Concerns Section Related Observation LastModified by Organization Detai ls LastModified Time None Recorded Concern Status LastModified by Organization Details LastModified Time None Recorded Advance Directives Directive None Recorded Payers Encounter Date Sequence Insurance Name Policy Number Policy Dumont Covered Member ID Dumont Member ID Guarantor Name 07/30/2024 1 [facility] [id number] Chandni Ward [id number] Chandni Ward 09/21/2024 1 [facility] [id number] Chandni Ward [id number] Chandni Ward 11/02/2024 1 [facility] [id number] Chandni Ward [id number] Chandni Ward 12/27/2024 1 [place] [facility] Chandni Ward [id number] Chandni Ward 01/06/2025 1 [place] [facility] Chandni Ward [id number] Chandni Ward Notes Date Note Type Note Provider Name and Address Organization Details Recorded Time 09/21/2024 text/html Patient is a 49 year old female that presents to the office for follow up. Patient would like to have her A1c checked again due to it being 6.4 in May and then her not tolerating the Farxiga. Patient reports her diet and exercise have been improved. Patient reports being sick since Thanksgi. Patient reports symptoms started with productive cough with yellow-green sputum, was taking Lul's and Nyquil. Patient reports lingering dry cough that is keeping her up at night. Patient denies chest pain, shortness of breath and fevers. Patient also requesting paperwork to be filled out allowing her to carry a lydia pack at work with her medications and diabetic testing supplies. Gayle Garcia, [employer] [address] [facility] [address], [place], [address], [facility] [employer] [facility] 09/21/2024 16:11:07 01/06/2025 text/html This patient has a past medical history significant for type 2 diabetes, asthma, GERD, and lung nodule who presents to the office with a complaint anosmia that began last month. She notes increased nasal congestion with yellow discolored mucus production that preceded her symptoms. She was currently prescribed Augmentin on 12/28/2024 for sinusitis. She reports lessening of her mucus drainage but still has loss of sense of smell. She states that she still is able to taste foods appropriately. She has had 3 sinus surgeries for polyp removal in the past. She does use Flonase regularly. She has not had any recent imaging completed. We will obtain a sinus CT. Tiffany Bellamy, [facility] [address] [facility], [facility] [address], [place], [address], [facility] [employer] [facility] 01/06/2025 10:23:14 OBGyn Episode No OBEpisode recorded.
--- OUTSIDE RECORDS SUMMARY | 2025-01-12 16:33 | XMS_ITS | Data Portability ---
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 While the bleeding and cramping could be related to the Depo-Provera use, it is important to rule out other potential causes of these symptoms. Not available 01/02/2024 12:49:15 Plan of Treatment Reminders Order Date Submit Date Provider Last Modified By Organization Details Last Modified Time Details Appointments None recorded. Lab bacterial vaginosis + vaginitis panel, vaginal 2023 024 [employer] [employer], [address] [place], [address], 4 14:10:47 bacterial vaginosis + vaginitis panel, vaginal 2023 024 [employer], [address] [place], [address], 4 09:07:55 TSH, serum, reflex free T4 2023 024 [email or web address], [address] [place], [address], 4 12:44:07 pap, LB 2022 023 [facility], [address], [place], [address], 3 15:19:01 HPV E6+E7 mRNA, qualitative PCR, cervix 2022 023 [facility], [address] [place], [address], 3 16:55:38 bacterial vaginosis + vaginitis panel, vaginal 2022 023 [facility], [address] [place], [address], 10:19:12 Referral None recorded. Procedures None recorded. Surgeries None recorded. Imaging MAMMO, screening, digital, bilateral [address] [facility], [facility], [address], 3 10:00:08 Medication Orders Depo-Warehouse Order Puller a 150 mg/mL intramuscul ar syringe 2022 023 [facility] [id number] [facility], [address] [place] [address], [address], 15:54:47 Patient TargetsNo targets recorded. Patient Instructions Encounter Date Encounter Id Patient Instructions Last Modified By Organization Details Last Modified Time 07/21/2023 [id number] general health care education Not available 07/21/2023 15:54:44 mammogram: about this test Not available 07/21/2023 15:54:44 01/02/2024 [id number] - Undress from the waist down for the vaginal culture - Follow up with the results of the vaginal culture and thyroid test - Continue taking vitamin D3 and calcium supplements as recommended - Monitor stress levels and any changes in bleeding patterns - Return for a follow-up appointment if symptoms worsen or new symptoms arise Not available 01/02/2024 12:49:31 I discussed with the patient the possibility of an infection or thyroid dysfunction causing her break-through bleeding and spotting. We decided to perform a vaginal culture to rule out any infection and check her thyroid function. I also advised her that stress could play a role in her symptoms, and we will continue to monitor her response to Depo-Provera. [id number] Not available 01/02/2024 12:44:29 Reason for Referral None Reported. Results Created Date Observation Date Name Description Value Unit Range Abnormal Flag Note LastModifiedBy Organization Detail LastModifiedTime 06/04/2006/05/2023 VAGIN ITIS PANEL bacterial vaginosis BV neg negati ve normal Not Available [facility] [address] [place] [address], [address], 06/06/2023 10:19:12 06/04/20 23 06/05/2023 VAGIN ITIS PANEL mira species C. spp POS negati ve abnormal Not Available [facility] [address] [place] [address], [address], 06/06/2023 10:19:12 06/04/2006/05/2023 VAGIN ITIS PANEL mira glabrata C. gla neg negati ve normal Not Available [facility] [address] [place] [address], [address], 06/06/2023 10:19:12 06/04/20 23 06/05/2023 VAGIN ITIS PANEL trichomonas vaginalis CV/TV TRICH neg negati ve normal Not Available [facility] [address] [place] [address], [address], 06/06/2023 10:19:12 07/21/20 23 07/23/2023 HPV HIGH RISK HPV high risk Negati ve negati ve normal The HPV High Risk assay is inten ded for use as co-te sting with cytol ogy and not as a subst itute for regul ar cervi aurelia cytol ogy scree cash. This assay is not inten ded for use as a scree cash devic e for women under age 30 with pina l cervi aurelia cytol ogy. Not Available [facility] [address] [place] [address], [address], 07/23/2023 16:55:37 07/21/2007/25/2023 THINP REP TIS PAP clinical information: normal None given Not Available [facility] [place] [address] [place], [address], 07/25/2023 15:19:01 07/21/2007/25/2023 THINP REP TIS PAP LMP: normal NONE GIVEN Not Available [facility] [address] [place], [address], 07/25/2023 15:19:01 07/21/2007/25/2023 THINP REP TIS PAP prev. Pap: normal NONE GIVEN Not Available [address], [address], 07/25/2023 15:19:01 07/21/2007/25/2023 THINP REP TIS PAP prev. BX: normal NONE GIVEN Not Available [facility] [address] [place], [address], 07/25/2023 15:19:01 07/21/2007/25/2023 THINP REP TIS PAP source: normal Cervi x Not Available [place] [address] [address] [place], [address], 07/25/2023 15:19:01 07/21/2007/25/2023 THINP REP TIS PAP statement of adequacy: Speci men proce ssed and exami patrick, but unsat isfac tory for evalu ation due to an insuf ficie nt numbe r of squam ous cells . Not Available [address] [place], [address], 07/25/2023 15:19:01 07/21/2007/25/2023 THINP REP TIS PAP interpretati on/result: Cytol ogy Resul ts: Unabl e to provi de inter preta tion due to unsat isfac tory speci men adequ acy. Not Available [place] [address] [place], [address], 07/25/2023 15:19:01 07/21/2007/25/2023 THINP REP TIS PAP comment: normal This case could not be evalu ated with compu ter alden kathy techn ology . The slide was tamara rodriguez screjon patrick accor ding to routi ne proce dures . Funga l organ isms morph ologi analisa consi stent with [place] da spp Not Available [address] [address] [place], [address], 07/25/2023 15:19:01 07/21/2007/25/2023 THINP REP TIS PAP cytotechnolo gist: normal BKA, CT( CP) CT scree cash locat ion: [place] [address] [place] [address] Not Available [place] [address] [address] [place], [address], 07/25/2023 15:19:01 07/21/2007/25/2023 THINP REP TIS PAP review cytotechnolo gist: normal MMW, CT( CP) CT scree cash locat ion: [place] [address] [place] [address] Not Available [place] [address] [place], [address], 07/25/2023 15:19:01 07/21/2007/25/2023 THINP REP TIS PAP comment EXPLA NATOR Y NOTE: The Pap is a scree cash test for cervi aurelia cance r. It is not a diagn ostic test and is subje ct to false negat sherita and false posit sherita resul ts. It is most relia ble when a satis facto ry sampl e, regul eugenio obtai patrick, is submi tted with relev ant clini aurelia findi ngs and histo ry, and when the Pap resul t is evalu ated along with histo sanjuana and curre nt clini aurelia infor matio n. Not Available [facility] [address] [address], [place], [address], 07/25/2023 15:19:01 01/02/20 24 01/05/2024 VAGIN ITIS PLUS STD PANEL bacterial vaginosis BV POS negati ve abnormal Not Available [facility] [address] [place] [address], [address], 01/06/2024 09:07:55 01/02/20 24 01/05/2024 VAGIN ITIS PLUS STD PANEL mira species C. spp POS negati ve abnormal Not Available [address], [address], 01/06/2024 09:07:55 01/02/20 24 01/05/2024 VAGIN ITIS PLUS STD PANEL mira glabrata C. gla neg negati ve normal Not Available [address], [address], 01/06/2024 09:07:55 01/02/20 24 01/05/2024 VAGIN ITIS PLUS STD PANEL trichomonas vaginalis CV/TV TRICH neg negati ve normal Not Available [address], [address], 01/06/2024 09:07:55 01/02/20 24 01/05/2024 VAGIN ITIS PLUS STD PANEL chlamydia trachomatis CT neg negati ve normal This repor t is inten ded for us in clini aurelia monit oring and manag ement of patijon nts. It is not inten ded for use in medic al-le gal appli catio n. Not Available [facility] [address] [place] [address], [address], 01/06/2024 09:07:55 01/02/20 24 01/05/2024 VAGIN ITIS PLUS STD PANEL neisseria gonorrhoeae GC neg negati ve normal This repor t is inten ded for us in clini aurelia monit oring and manag ement of patie nts. It is not inten ded for use in medic al-le gal appli catio n. Not Available [facility] [address] [place] [address], [address], 01/06/2024 09:07:55 07/19/2007/23/2024 VAGIN ITIS PLUS STD PANEL bacterial vaginosis BV POS negati ve abnormal Not Available [address], [address], 07/23/2024 14:10:47 07/19/2007/23/2024 VAGIN ITIS PLUS STD PANEL mira species C. spp neg negati ve normal Not Available [address], [address], 07/23/2024 14:10:47 07/19/20 24 07/23/2024 VAGIN ITIS PLUS STD PANEL mira glabrata C. gla neg negati ve normal Not Available [address], [address], 07/23/2024 14:10:47 07/19/20 24 07/23/2024 VAGIN ITIS PLUS STD PANEL trichomonas vaginalis CV/TV TRICH neg negati ve normal Not Available [address], [address], 07/23/2024 14:10:47 07/19/2007/23/2024 VAGIN ITIS PLUS STD PANEL chlamydia trachomatis CT neg negati ve normal This repor t is inten ded for us in clini aurelia monit oring and manag ement of patie nts. It is not inten ded for use in medic al-le gal appli catio n. Not Available [facility] [address] [place] [address], [address], 07/23/2024 14:10:47 07/19/20 24 07/23/2024 VAGIN ITIS PLUS STD PANEL neisseria gonorrhoeae GC neg negati ve normal This repor t is inten ded for us in clini aurelia monit oring and manag ement of jeremiah zhang. It is not inten ded for use in medic al-le gal appli catio n. Not Available [facility] [address] [facility], [place], [address], 07/23/2024 14:10:47 Result Notes None recorded. Procedures Surgical History Date Name Laterality Status Provider Name and Address Organization Details Recorded Time 07/21/20 Date of Last Pap Smear completed Carlota Cooley [facility] 07/21/2023 15:37:00 delivery completed Luzmaria Corona [facility] 06/04/2023 14:45:41 Imaging Results None recorded. Procedure Notes None recorded. Medical Equipment None Reported. Allergies Allergen ID Allergen Name Allergen Category Reaction Reaction Severity Criticality Documentation Date Start Date Code Code System Note Provider Name and Address Organization Details Recorded Time 190977 Motrin medicatio n Not available Not available Not available 06/04/202356337 8 RxNorm Not Available Not Available Not Available Medications Name Sig Start Date Stop Date Status Note LastModified by Organization Details LastModified Time promethazin e-DM 6.25 mg-15 mg/5 mL oral syrup TAKE 5ML BY MOUTH EVERY 4 HOURS 01/01 completed Not Available Not Available Not Available neomycin-po lymyxin-hyd rocort 3.5 mg/mL-10,00 0 unit/mL-1 % ear solution INSTILL 4 DROPS INTO AFFECTED EAR(S) BY OTIC ROUTE 3 TIMES PER DAY FOR 7 DAYS 07/19 completed Not Available Not Available Not Available prednisone 10 mg tablet PLEASE SEE ATTACHED FOR DETAILED DIRECTION S 06/04 completed Not Available Not Available Not Available albuterol sulfate 2.5 mg/3 mL (0.083 %) solution for nebulizatio n USE 1 VIAL VIA NEBULIZER EVERY 6 HOURS NEEDED active Not Available Not Available No t Available azithromyci n 250 mg tablet TAKE 2 TABLETS BY MOUTH TODAY, THEN TAKE 1 TABLET DAILY FOR 4 DAYS DIRECTED 07/19 completed Not Available Not Available Not Available fluconazole 150 mg tablet TAKE 1 TABLET BY MOUTH EVERY 72 HOURS 07/19 completed Not Available Not Available Not Available benzonatate 200 mg capsule TAKE 1 CAPSULE BY MOUTH THREE TIMES A DAY NEEDED FOR 7 DAYS 07/19 completed Not Available Not Available Not Available prednisone 20 mg tablet TAKE 2 TABLETS BY MOUTH EVERY DAY 07/19 completed Not Available Not Available Not Available metronidazo le 500 mg tablet TAKE 1 TABLET BY MOUTH TWICE A DAY FOR 7 DAYS active Not Available Not Available No t Available sulfamethox azole 800 mg-trimetho prim 160 mg tablet TAKE 1 TABLET BY MOUTH TWICE A DAY FOR 10 DAYS 01/01 completed Not Available Not Available Not Available triamcinolo ne acetonide 0.1 % topical cream APPLY A THIN LAYER TO THE AFFECTED AREA(S) 2 TIMES PER DAY NEEDED 07/19 completed Not Available Not Available Not Available oxycodone-a cetaminophe n 5 mg-325 mg tablet TAKE 1 TABLET BY MOUTH EVERY 6 HOURS NEEDED FOR PAIN 06/04 completed Not Available Not Available Not Available benzonatate 100 mg capsule TAKE 1 CAPSULE BY MOUTH THREE TIMES A DAY NEEDED FOR COUGH 06/04 completed Not Available Not Available Not Available nystatin 100,000 unit/gram topical cream APPLY TO THE AFFECTED AREA(S) BY TOPICAL ROUTE 2 TIMES PER DAY NEEDED FOR RASH 01/01 completed Not Available Not Available Not Available prednisone 50 mg tablet TAKE 1 TABLET BY MOUTH DAILY FOR 4 DAYS. 01/01 completed Not Available Not Available Not Available budesonide 0.5 mg/2 mL suspension for nebulizatio n ADD 0.5MG (2ML) TO 120 ML NORMAL SALINE AND IRRIGATE IN NOSE TWICE DAILY 01/01 completed Not Available Not Available Not Available montelukast 10 mg tablet TAKE 1 TABLET BY MOUTH EVERY DAY 06/04 completed Not Available Not Available Not Available methylpredn isolone 4 mg tablets in a dose pack active Not Available Not Available Not Available albuterol sulfate HFA 90 mcg/actuati on aerosol inhaler INHALE 2 PUFFS BY MOUTH EVERY 4-6 HOURS NEEDED active Not Available Not Available No t Available amoxicillin 875 mg-potassiu m clavulanate 125 mg tablet active Not Available Not Available Not Available Depo-Warehouse Order Puller a 150 mg/mL intramuscul ar syringe Inject 1 mL every 3 months by intramusc ular route. 2022 active Not Available Not Available Not Avai lable Klor-Con M20 mEq tablet,exte nded release TAKE 1 TABLET BY MOUTH EVERY DAY 07/19 completed Not Available Not Available Not Available budesonide- formoterol HFA 160 mcg-4.5 mcg/actuati on aerosol inhaler INHALE 2 PUFFS BY MOUTH TWICE A DAY active Not Available Not Available No t Available Lantus Solostar U-100 Insulin 100 unit/mL (3 mL) subcutaneou s pen INJECT 20 UNITS INTO THE SKIN NIGHTLY AT BEDTIME 07/19 completed Not Available Not Available Not Available Humalog KwikPen (U-100) Insulin 100 unit/mL subcutaneou s INJECT 12 UNITS INTO THE SKIN 3 (THREE) TIMES DAILY WITH MEALS 07/19 completed Not Available Not Available Not Available OneTouch Verio test strips USE 1 STRIP IN METER TO CHECK BLOOD SUGAR 3 TIMES DAILY 07/19 completed Not Available Not Available Not Available Farxiga 5 mg tablet TAKE 1 TABLET BY MOUTH EVERY DAY 07/19 completed Not Available Not Available Not Available TRUEplus Pen Needle 31 gauge x 3/16 USE 1 NEEDLE TO INJECT INSULIN 4 TIMES DAILY 07/19 completed Not Available Not Available Not Available fluticasone 113 mcg-salmete rol 14 mcg/actuati on breath activated powdr INHALE 1 PUFF BY MOUTH TWICE A DAY 01/01 completed Not Available Not Available Not Available Xhance 93 mcg/actuati on breath activated aerosol 07/19 completed Not Available Not Available Not Available OneTouch Delica Plus Lancet 33 gauge USE 1 LANCET TO PRICK SKIN 3 TIMES DAILY 07/19 completed Not Available Not Available Not Available OneTouch Verio Reflect Meter USE DIRECTED TO CHECK BLOOD SUGAR 3 TIMES DAILY 06/04 completed Not Available Not Available Not Available FreeStyle Jay Jay 2 Sensor kit USE DIRECTED. CHANGE EVERY 14 DAYS active Not Available Not Available No t Available Vitals Date Recorded Body weight Body mass index (BMI) Body height Systolic blood pressure Diastolic blood pressure Provider Name and Address Organization Details Last Updated DateTime 06/04/2023 62638.0 3 g 30.7 kg/m2 162.56 cm 100 mm[Hg] 60 mm[Hg] Luzmaria Corona [employer] 14:47:02 Date Recorded Body height Body mass index (BMI) Body weight Body temperature Systolic blood pressure Diastolic blood pressure Provider Name and Address Organization Details Last Updated DateTime 4 162.56 cm 32.2 kg/m2 81939.6 5 g 97 [degF] 120 mm[Hg] 70 mm[Hg] Carlota Cooley [employer] [facility] 4 12:17:37 Date Recorded Body height Body mass index (BMI) Body weight Body temperature Oxygen saturation Oxygen saturation in Arterial blood by Pulse oximetry Heart rate Systolic blood pressure Diastolic blood pressure Provider Name and Address Organization Details Last Updated DateTime 4 162.56 cm 31.9 kg/m2 82436.1 8 g 97.4 [degF] 97 % 97 % 85 /min 120 mm[Hg] 74 mm[Hg] Luzmaria leger [employer] [facility] 4 12:38:03 Social History Question Answer Notes LastModified by [email or web address] Details LastModified Time Tobacco Smoking Status Never Smoker Carlota Cooley [facility] [employer] 07/21/2023 15:39:26 What Is Your Level Of Alcohol Consumption? Occasional Information not available 06/04/2023 How Many Times Per Week Do You Consume Alcohol? Less Than 1 Time Per Week Information not available 07/21/2023 Are You Blind Or Do You Have Difficulty Seeing? No Information not available 06/04/2023 Are You Deaf Or Do You Have Serious Difficulty Hearing? No Information not available 06/04/2023 What Type Of Diet Are You Following? REGULAR Information not available 06/04/2023 Do You Or Have You Ever Used E-cigarettes Or Vape? Never Used Electronic Cigarettes Information not available 06/04/2023 How Many Children Do You Have? 2 Information not available 07/21/2023 What Is Your Relationship Status? Single Information not available 06/04/2023 Are You Sexually Active? Yes Information not available 06/04/2023 Do You Use Any Illicit Or Recreational Drugs? No Information not available 06/04/2023 Sex: Unknown Functional Status Question Answer Note LastModified by Organizat ion Details LastModified Time What is your exercise level? Occasional jak Information not available 06/04/2023 Mental Status None recorded. Family History Relationship Description Onset Age of this Age Resolved Age Notes LastModified by Organization Details LastModified Time Mother Hypertensive disorder meek z Not available 06/04/2023 14:41:00 Mother Diabetes mellitus bettieic z Not available 06/04/2023 14:41:00 Medical History Condition Response Diabetes Mellitus (non-insulin dependent ) N Diabetes (insulin dependent) N Asthma Y Gynecological History Statement/Question Response Flow Moderate Date of last HPV 07/21/2023 Date of LMP HPV Vaccine N Date of Last Pap Smear 07/21/2023 Duration of Flow (days) 7 Most Recent Mammogram Current Control Method Depo-Warehouse Order Puller a Age at Menarche 13 Obstetrics History GPAL:G 2 P 2 0 0 2 Type Value Full Term 2 Living 2 Total 2 Past Encounters Encounter ID Performer Location Encounter Start Date Encounter Closed Date Diagnosis/Indication Diagnosis SNOMED-CT Code Diagnosis ICD10 Code Diagnosis Note [id number] SIM [facility] [address] [place] [address] 06/04/2023 14:26:15 06/04/2023 18:13:03 Vaginal discharge 001906391 N89.8 Infection screening 2437 13162 Z11.9 Pt educated on exam findings, and discussed POC. Vaginal cx collected and sent. Pt advised to avoid fragrant soaps/laun dry detergents , use of baking soda soaks, having partner change soaps, etc. Further POC pending lab result review. Cyst of ri ght Bartholin's gland duct 0534794132 7027840 N75.0 Pt was seen in ER on 05/20/2023 for DKA. It was noted that she had a right labial abscess at that time. 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 Medical, family and social history reviewed. The patient denies any changes. Adequate changes were made. 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 Menses lasts for 3 or 4 days. Reports they are not heavy or painful. Denies spotting in between.Pt is currently using Depo for contracept ion. She is satisfied with her current method, refills sent. Pap History:Art webb is due for papCollect ed today Breast History:Art webb denies breast symptoms. Education on Breast Self Awareness given.She is due for mammogramO rder given today Family History:Ne gative for Breast Cancer, Cervical Cancer, Colon Cancer, Endometria l Cancer and Ovarian Cancer. Social History:Art webb is currently sexually active. She denies complaints about sexual activity. Patient reports feeling safe at home from emotional, physical, and verbal abuse.She does/does not desire STD testing. Exercise: Occasional She wears her seat belt. She does not text and drive.The patient denies smoking and recreation al drugs. She denies drinking alcohol. Patient is regularly seen by PCP for preventati ve care: Yes Screening for malignant neoplasm of cervix 166806989 Z12.4 ASCCP guidelines reviewed with pt. Pap collected and sent. Further POC pending lab result review. Pt states understand ing of POC. Screening for malignant neoplasm of breast 149852725 Z12.31 Pt educated on breast cancer screening guidelines , and discussed recommenda tion for scheduling imaging at hospital of her choice. Reviewed recommenda tion to have imaging done at same facility if possible as previous screenings . Pt states understand ing of POC. Depression screening 171 235100 Z13.31 PHQ9: 0. Pt educated on normal scoring, and discussed depression precaution s and when to notify HCP/go to ER. Surveillan ce of contraception 461372277 Z30.40 Pt educated on risks Vs benefits of use, reviewed ACHES symptoms and blackbox warning. Importance of following dosing schedule as directed reinforced to pt, and on use of condoms or abstinence if dosing schedule is interrupte d. Pt advised no appt necessary to receive injection. Pt to bring Rx with her from pharmacy for administra tion. Pt encouraged to consider Ca+ and Vit D supplement ation with use. Refills sent. Plan to F/U PRN or at next WWE. [id number] [facility] [address] [place] [address] 01/02/2024 11:52:27 01/02/2024 16:46:27 Break-through bleeding 27677745 N92.1 Perform a vaginal culture to rule out any infection, such as BV, yeast, gonorrhea, chlamydia, and trichomoni asis. Additional ly, check the patient's thyroid function as this could also be contributi ng to the abnormal bleeding pattern. Monitor the patient's response to Depo-Prove ra and assess for any changes in her stress levels that could be impacting her bleeding pattern. [id number] SIM BERRY [facility] [address] [place] [address] 07/19/2024 11:49:14 2024 17:14:20 Abnormal uterine bleeding [id number] 9100 N93.9 Pt presents with AUB. States does not normally have menses since she has been on Depo-prove ra for several years. Patient recently had two days of heavier bleeding, followed by spotting for 3 days. Bleeding has since stopped. --Discusse d the various causes of abnormal uterine bleeding. Including: polyps, fibroids, hyperplasi a, atypia, anovulatio n, vaginal infections /STI etc.-- Discussed that diet, exercise, stress, weight gain/loss can also cause abnormal uterine bleeding.- -Discussed that abnormal uterine bleeding can be related to prolonged Depo-prove ra use causing thinning of endometriu m which then can cause irregular bleeding. If infections are ruled out patient could benefit from a trial of estrogen to thicken endometria l lining. Contracept ion: Depo-prove ra POCSure Swab to rule out infectious cause of bleeding.I f negative and bleeding continues discussed RTC for TVUS and trial of estrogen to control bleeding.P atient due for well woman exam on 07/22 or after, patient advised to make WWE appt. Health Concerns Section Related Observation LastModified by Organization Detai ls LastModified Time None Recorded Concern Status LastModified by Organization Details LastModified Time None Recorded Advance Directives Directive None Recorded Payers Encounter Date Sequence Insurance Name Policy Number Policy Dumont Covered Member ID Dumont Member ID Guarantor Name 06/04/2023 1 [employer] [place] 2020 (MEDICAID REPLACEMENT - HMO) Chandni Ward [id number] Chandni Ward 07/21/2023 1 [employer] [place]AC[place] - [place]MO) Chandni Ward [id number] Chandni Ward 01/02/2024 1 [employer] [place] - [place]MO) Chandni Ward [id number] Chandni Ward 07/19/2024 1 [facility] [id number] Chandni Ward [id number] Chandni Ward Notes Date Note Type Note Provider Name and Address Organization Details Recorded Time 06/04/2023 text/html Pt was seen in [facility] for cyst and has drainage tube. This was supposed to be removed today but patient states this morning when she was cleaning up it must have fell out. . TONG BAUTISTA, MANAGER BUSINESS INFORMATION [address] [facility], [place], [address], [facility] 06/05/2023 09:31:11 07/21/2023 text/html Annual GYNReport ed bypatient.History:n o gynecologic complaints Urinary symptoms:No hematuria Vulva:No genital lesion Vagina:Normal vaginal discharge Breast:No breast pain; No breast lump Current Contraception:Intra muscular contraceptive injection Sexual complaints:No sexual complaints; No pain during intercourse Menopausal Symptoms:No menopausal symptoms Psychological symptoms:No depression Chandni is here for her annual exam with pap, pt depression screening is neg, patient is current on depo injection control pt has no concerns at the moment TONG BAUTISTA, MANAGER BUSINESS INFORMATION [facility] [facility], [place], [address], [facility] [employer] IV 07/21/2023 15:58:59 01/02/2024 text/html The patient is a 48-year-old female who presents with complaints of break-through bleeding, which started last week. She received a Depo-Provera shot in October, and after that, she experienced spotting four times throughout the month. The patient also reports cramping during the bleeding episodes, which last for a day or two before resolving. She has been on Depo-Provera for several years and recently started taking vitamin D3 and calcium supplements as recommended. There has been no break in her Depo-Provera use. TONG BAUTISTA, SIM [facility] [facility], [place], [address], [facility] [employer] IV 01/02/2024 12:49:44 07/19/2024 text/html Patient presents for irregular bleeding. Patient is on the Depo Provera and has been for years with no periods at all. This past week she had 2 days of heavy bleeding then stopped and continues to spot. Patient is concerned because this is not normal for her and she wants to assure all is okay. TONG BAUTISTA, SIM [facility], [place], [address], [facility] [employer] IV 2024 09:38:25 OBGyn Episode Ob Episode Information Episode Created Date Number of Fetuses Patient Bloodtype Patient rh Status Prepregnancy Weight lbs Domestic Partner Domestic Partner Phone Father Name Acid Dipper Status 07/21/20 23 1 CLOSED Fetus Data First Name Last Name Admitted to NICU Weight (g) Sex Living Outcome Pediatric Complications Fetus ID Race Codes Race Delivery Type 3175.14 4 Full Term [id number] Repeat Gulshan Calculation Initial Gulshan Date Initial Exam Date Initial Exam Provider Initial Ultrasound Date Last Menstrual Period Date Ultra Sound Weeks Gestation 0 Eighteen To Twenty Week Gulshan Update Ultra Sound Date Fundal Height At Umbil Quickening Date Ultra Sound Latest Weeks Gestation Final Gulshan Confirmed By Final Gulshan Confirmed Date Final Gulshan Date Ultra Sound Latest Days Gestation 0 0 Menstrual History Last Menstrual Date Menses Monthly On Bcp Conception Prior Menses Frequency Hcg Plus Date Menarche Onset Age Delivery Information Delivery Date Delivery Type Labor Anesthesia Weeks Gestation Incision Type Labor Labor Length Hrs Delivered By Post Complications Tubal Sterilization Discharge Date Comments 1 Discharge Information Feeding Method Contraceptive Method Maternal HG B and HCT Levels Ob Episode Information Episode Created Date Number of Fetuses Patient Bloodtype Patient rh Status Prepregnancy Weight lbs Domestic Partner Domestic Partner Phone Father Name Acid Dipper Status 07/21/20 23 1 CLOSED Fetus Data First Name Last Name Admitted to NICU Weight (g) Sex Living Outcome Pediatric Complications Fetus ID Race Codes Race Delivery Type 3175.14 4 Full Term [id number] Primary Gulshan Calculation Initial Gulshan Date Initial Exam Date Initial Exam Provider Initial Ultrasound Date Last Menstrual Period Date Ultra Sound Weeks Gestation 0 Eighteen To Twenty Week Gulshan Update Ultra Sound Date Fundal Height At Umbil Quickening Date Ultra Sound Latest Weeks Gestation Final Gulshan Confirmed By Final Gulshan Confirmed Date Final Gulshan Date Ultra Sound Latest Days Gestation 0 0 Menstrual History Last Menstrual Date Menses Monthly On Bcp Conception Prior Menses Frequency Hcg Plus Date Menarche Onset Age Delivery Information Delivery Date Delivery Type Labor Anesthesia Weeks Gestation Incision Type Labor Labor Length Hrs Delivered By Post Complications Tubal Sterilization Discharge Date Comments 5 Discharge Information Feeding Method Contraceptive Method Maternal HG B and HCT Levels
--- OUTSIDE RECORDS SUMMARY | 2025-01-12 16:33 | XMS_ITS | Continuity of Care Document ---
Author Organization [facility] Address [address] [place] [address] Phone Care Team Providers Care Home Health Nurse Licensed Practical Name Role Phone Jim Ward MD Unavailable Unavailable Medications Medication Instructions Dosage Effective Dates (start - stop) Status Comments PROVENTIL HFA 90MCG PUFFS 2 Q 4HR - Active FLUTICASONE PROPIONATE 50MCG S 2 QD-daily - Active Advance Directives Directive Yes / No Effective Date File Name No Information Encounters Encounter Description Practice Location Reason(s) For Visit Diagnoses Date Provider Providers Copied on Encounter [facility], [address], [place], [place], [id number], tel:[phone] [facility] No Information 1 Ed Jim. [address] [place] [address], [id number] , . tel: [phone] [facility], [address], [place], [place], [id number], tel:[phone] [facility] POLYP OF NASAL CAVITYALLERGIC RHINITIS NECINTRINSIC ASTHMA NOS 9 Ed Fernandez. [address] [place] [address], [id number] , . tel: [phone] Family History Family Member Type Diagnosis Age At Onset No Information Payers Payer name Insurance type Covered libertarian ID Authoriza tion(s) No Information Social History Type Description Quantity Date Captured Comments Sex Female Smoking Status No Information Chief Complaint And Reason For Visit No Information Reason For Referral Reason For Referral No Information History Of Present Illness Encounter Date Complaint History Of Prese nt Illness No Information Functional Status Date Functional Assessmen t No Information Instructions Date Instruction Additional Infor mation No Information Assessments Type Assessment Date No Information Patient Care Teams Name Effective Dates (start - stop) Status Members No Information
== END 2025-01-12 15:22 | disposition home or self-care (01) ==
LOC: ANHIMG 15:22
PROVIDERS: PCP Nurse Practitioner Family; Visit Provider Nurse Practitioner Family
DX: J32.9 Chronic sinusitis, unspecified (principal)
CPT/HCPCS: 70486